=== PATIENT | female | born 1945 | race Caucasian/White ===

== ENCOUNTER 2023-08-24 07:13 | Inpatient (IN) | payer MEDICARE, OTHER, SELFPAY ==
[2023-08-24] VITALS (11 sets, daily range): BP systolic 108–164; BP diastolic 68–95; PULSE 90–111; RESP 14–18; TEMP 36.4–37; O2SAT 93–99; BMI 25.7
--- NOTE | 2023-08-24 07:23 | XR_ITS ---
WS: [id number] Exam: XR chest 1V portable [id number] Date/Time of Exam: 08/24/2023 8:04 AM Reason For Exam: abd pain No priors. Bilateral lower lobe atelectasis. Remaining lung multani are clear. No pneumothorax. Cardiomediastinal silhouette is unremarkable. Calcification of the mitral valve annulus. Bony structures are intact. IMPRESSION: 1. Bilateral lower lobe atelectasis.
--- NOTE | 2023-08-24 07:23 | CT_ITS ---
WS: [id number] CT scan of the abdomen and pelvis with IV contrast. Additional two-dimensional coronal and sagittal r econstruction was performed. 08/24/2023 Clinical Data: abd pain Comparison: None. DLP: 734.[address] scans at [facility] use at least one of these dose optimization techniques: automated e xposure control; mA and/or kV adjustment per patient size (includes targeted exams where dose is matc hed to clinical indication); or iterative reconstruction. Findings: The lower lungs show no nodules, masses or effusions. There is massive ascites throughout the abdomen . The liver, gallbladder, spleen, adrenal glands and pancreas are normal. The kidneys show equal bilateral contrast excretion with several small cortical cysts but no masses, hydronephrosis or renal calculi. The abdominal aorta is normal in size. No appendicitis or diverticulitis is seen. The stomach, small bowel and colon show no abnormalities. The bladder is unremarkable. The uterus is normal. No inguinal hernia is seen. 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 Impression: Massive abdominal and pelvic ascites.
--- NOTE | 2023-08-24 07:24 | ECG_ITS ---
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 Measurements Intervals [place] Rate: 107 P: 49 MN: 122 QRS: -29 QRSD: 86 T: 19 QT: 328 QTc: 438 Interpretive Statements SINUS TACHYCARDIA POSSIBLE ANTERIOR MYOCARDIAL INFARCTION , PROBABLY OLD [30 ms Q WAVE IN V3/V4, OR R < 0.2 mV IN V4] ABNORMAL RHYTHM ECG No previous ECG available for comparison Electronically Signed On 08-24-2023 13:43:40 SUMMER CAMP COUNSELOR by Carlos Fields M.D. [id number]
--- NOTE | 2023-08-24 07:30 | PC.PHAR ---
pt states she takes no prescription medications-pt states only took a one time dose of imodium on sun08/22/23-no meds show up on ext med history
--- NOTE | 2023-08-24 07:32 | ED_ITS ---
HPI - Weakness 2 General: Chief complaint: Weakness Stated complaint: Weakness Time Seen by Provider: 08/24/23 07:17 Source: patient Mode of arrival: ambulatory Limitations: no limitations History of Present Illness: 78-year-old female states she has had di arrhea over the last 4 days states she has been gradually getting weaker. Was found on the floor today states she had felt weak she denies falling or any injuries. She states she had some abdominal distention along with diffuse abdominal pain she rates a 4 out of 10. Denies any headache denies any chest pain denies any fevers. Associated symptoms: Denies chest pain, chills, dysuria, fever(s), headache(s), nausea or vomiting Review of Systems 2 Const: Denies: fever(s), chills, body aches or change in appetite ENMT: Denies: throat pain or dental pain Card: Denies: chest pain Resp: Denies: dyspnea GI: Reports: abdominal pain and diarrhea; Denies: nausea or vomiting : Denies: dysuria Musc: Denies: neck pain or back pain Skin/Breast: Denies: rash Neuro: Denies: headache(s) PFSH ED 2 PFSH: Family History Mother Carotid artery disease Father No problems noted. Social History (Updated 08/24/23 @ 11:43 by connor Baldwin) Smoking and tobacco/nicotine status: never used tobacco/nicotine Second hand smoke exposure: No Alcohol intake: never Substance/Drug Use: never Lives independently: Yes Physical Exam 2 Const: COMMON NORMALS: no acute distress, patient oriented x3 and healthy appearing HENMT: COMMON NORMALS: normocephalic and atraumatic HEAD & SCALP: n ormocephalic and atraumatic Neck/C-Spine: COMMON NORMALS: full ROM and supple Chest: COMMONS NORMALS: normal inspection of the chest and normal palpation of entire chest wall Resp: COMMON NORMALS: normal respiratory effort, No retractions, No use of accessory muscles and clear to auscultation bilaterally AUSCULTATION: clear to auscultation bilaterally Cardio: COMMON NORMALS: regular rate, regular rhythm and No murmurs present (Cardio) RATE: regular rate RHYTHM: regular rhythm GI: COMMON NORMALS: Soft to palpation and no masses PALPATION: Yes Soft to palpation OTHER: Distended abdomen with mild tenderness Extremity: COMMON NORMALS: full ROM NARRATIVE EXTREMITY EXAM: 2+ edmea Neuro: COMMON NORMALS: patient oriented x3, moves all extremities and no focal motor deficits Psych: COMMON NORMALS: mental status grossly normal, Normal thought process present and cooperative THOUGHT PROCESS: Normal thought process present Skin: COMMON NORMALS: no rashes or lesions noted and no wounds GENERAL SKIN EXAM: no rashes or lesions noted Course 2 Vital Signs: Vital signs: Vital Signs Temperature 98 F 08/24/23 07:18 Pulse Rate 105 H 08/24/23 09:40 Respiratory Rate 18 08/24/23 09:40 Blood Pressure 153/86 08/24/23 09:40 Pulse Oximetry 99 08/24/23 09:40 Oxygen Delivery Me thod Room Air 08/24/23 09:40 MDM - Weakness Medical Decision Making Patient presents here with increasing weakness she also has some edema and a distended abdomen CT did show ascites she does have a UTI as well spoke to hospitalist will admit. Medical Records I reviewed the patient's medical records. Lab Data I reviewed the patient's lab results. 08/24/23 07:36 08/24/23 07:36 Laboratory Results WBC 5.75 10^3/uL (3.29-11.43) 08/24/23 07:36 RBC 4.17 10^6/uL (3.85-5.65) 08/24/23 07:36 Hgb 10.80 g/dL (11.27-16.99) L 08/24/23 07:36 Hct 34.6 % (36-47) L 08/24/23 07:36 MCV 83.0 fl (85-98) L 08/24/23 07:36 MCH 25.9 pg (27-33) L 08/24/23 07:36 MCHC 31.2 g/dL (30-55) 08/24/23 07:36 RDW 17.8 % (12.1-15.1) H 08/24/23 07:36 Plt Count 254 10^3/cmm (157-399) 08/24/23 07:36 MPV 9.1 fL (7.4-10.4) 08/24/23 07:36 Lymph % (Auto) Not Reportable 08/24/23 07:36 Ramsey % (Auto) Not Reportable 08/24/23 07:36 Lymph # (Auto) Not Reportable 08/24/23 07:36 Ramsey # (Auto) Not Reportable 08/24/23 07:36 Total Counted 100 (0-100) 08/24/23 07:36 Atypical Lymphs % 4.0 % (0-5) 08/24/23 07:36 Absolute Neutrophils 5.0 10^3/cmm (1.4-6.5) 08/24/23 07:36 Segmented Neutrophils 72 % 08/24/23 07:36 Abs Segm Neuts (Man) 4.1 10/cmm (1.6-7.1) 08/24/23 07:36 Band Neutrophils 15.0 % 08/24/23 07:36 Abs Band Neuts (Man) 0.9 10^3/cmm (0.0-1.2) 08/24/23 07:36 Absolute Lymphocytes 0.6 10^3/cmm (1.2-3.4) L 08/24/23 07:36 Lymphocytes (Manual) 7 % 08/24/23 07:36 Monocytes (Manual) 2.0 % 08/24/23 07:36 Absolute Monocytes 0.1 10^3/cmm (0.1-0.6) 08/24/23 07:36 Eosinophils (Manual) 0 % 08/24/23 07:36 Absolute Eosinophils 0.0 10^3/cmm (0.0-0.7) 08/24/23 07:36 Basophils (Manual) 0.0 % 08/24/23 07:36 Absolute Basophils 0.0 10^3/cmm (0.0-0.2) 08/24/23 07:36 Metamyelocytes 0.0 % 08/24/23 07:36 Myelocytes 0.0 % 08/24/23 07:36 Nucleated RBCs 0.0 /100WBC (0-1) 08/24/23 07:36 Platelet Estimate Normal (Normal) 08/24/23 07:36 Anisocytosis Trace 08/24/23 07:36 PT 14.70 SECONDS (12.1-14.9) 08/24/23 07:36 INR 1.11 (0.8-1.2) 08/24/23 07:36 Sodium 136 mmol/L (136-145) 08/24/23 07:36 Potassium 3.4 mmol/L (3.5-5.1) L 08/24/23 07:36 Chloride 99 mmol/L (98-107) 08/24/23 07:36 Carbon Dioxide 20 mmol/L (22-29) L 08/24/23 07:36 Anion Gap 20.4 (5-19) H 08/24/23 07:36 BUN 33 mg/dL (8-23) H 08/24/23 07:36 Creatinine 0.9 mg/dL (0.5-0.9) 08/24/23 07:36 GFR Calculation Not Reportable 08/24/23 07:36 Glucose 104 mg/dL (65-115) 08/24/23 07:36 Calculated Osmolality 290 mOsm/kg (285-295) 08/24/23 07:36 Calcium 8.5 mg/dL (8.5-10.5) 08/24/23 07:36 Total Bilirubin 0.8 mg/dL (0.15-1.2) 08/24/23 07:36 AST 15 U/L (0-32) 08/24/23 07:36 ALT 8 U/L (0-33) 08/24/23 07:36 Alkaline Phosphatase 86 U/L (35-105) 08/24/23 07:36 Ammonia 10 umol/L (11-51) L 08/24/23 10:10 Troponin T Baseline 15 ng/L (0-10) H 08/24/23 07:36 Troponin T 120 Minute 13.18 ng/L (0-10) H 08/24/23 09:43 Delta Troponin T -1.82 ABS# (0-10) L 08/24/23 09:43 NT-Pro-B Natriuret Pep 1121 pg/mL (0-450) H 08/24/23 07:36 Total Protein 5.8 g/dL (6.6-8.7) L 08/24/23 07:36 Albumin 2.6 g/dL (3.5-5.2) L 08/24/23 07:36 Globulin 3.2 g/dL (1.3-4.6) 08/24/23 07:36 Lipase 8 U/L (13-60) L 08/24/23 07:36 Urine Color Yellow (Yellow) 08/24/23 11:42 Urine Appearance Hazy (CLEAR) A 08/24/23 11:42 Urine pH 5 (5-7) 08/24/23 11:42 Ur Specific [place] 1.015 (1.005-1.030) 08/24/23 11:42 Urine Protein 1+ (Negative) H 08/24/23 11:42 Urine Glucose (UA) Norm (Normal) 08/24/23 11:42 Urine Ketones 1+ (Negative) H 08/24/23 11:42 Urine Blood Neg (Negative) 08/24/23 11:42 Urine Nitrate Positive (Negative) H 08/24/23 11:42 Urine Bilirubin 1+ (Negative) H 08/24/23 11:42 Urine Urobilinogen 1 mg/dL (Negative) H 08/24/23 11:42 Ur Leukocyte Esterase Trace (Negative) H 08/24/23 11:42 Urine RBC 0-4 /hpf (0-2) H 08/24/23 11:42 Urine WBC 25-40 /hpf (0-5) H 08/24/23 11:42 Ur Squamous Epith Cells 0-4 /hpf (0-5) H 08/24/23 11:42 Amorphous Sediment Not Reportable 08/24/23 11:42 Urine Bacteria 2+ /hpf (NONE) H 08/24/23 11:42 Urine Mucus 2+ /hpf 08/24/23 11:42 Ur Oval Fat Bodies Y /hpf 08/24/23 11:42 No radiology studies performed this visit EKG Data EKG 1: I personally reviewed and interpreted this EKG as follows: EKG interpretation date: 08/24/23 EKG interpretation time: 07:31 Interpretation: nsr hr [address] or t wave abnormalities qrs 141 qtc 467 Discharge Plan Discharge Patient Disposition: Admitted As Inpatient Clinical Impression: Ascites, Weakness, Acute cystitis Condition: Stable Prescriptions: No Action Imodium 2 mg Capsule 4 mg PO .ONE TIME DOSE Coding Level of Care Code ED Fine Jewelry Sales Associate for Chg Jabier
[2023-08-24 07:44] LABS: Hematocrit 34.6 % (36-47); Mean Corpuscular HGB Conc 31.2 g/dL (30-55); Mean Corpuscular Hemoglobin 25.9 pg (27-33); Mean Platelet Volume 9.1 fL (7.4-10.4); Platelet Count 254 10^3/cmm (157-399); Red Blood Count 4.17 10^6/uL (3.85-5.65); Red Cell Distribution Width 17.8 % (12.1-15.1); White Blood Count 5.75 10^3/uL (3.29-11.43)
[2023-08-24] MEDS: sodium chloride 0.9% 1,000 ML 999 ML IV (07:53)
[2023-08-24 08:01] LABS: Alanine Aminotransferase 8 U/L (0-33); Albumin Level 2.6 g/dL (3.5-5.2); Alkaline Phosphatase 86 U/L (35-105); Anion Gap 20.4 (5-19); Aspartate Amino Transferase 15 U/L (0-32); Blood Urea Nitrogen 33 mg/dL (8-23); Calcium 8.5 mg/dL (8.5-10.5); Carbon Dioxide 20 mmol/L (22-29); Chloride 99 mmol/L (98-107); Globulin 3.2 g/dL (1.3-4.6); Glucose 104 mg/dL (65-115); Lipase 8 U/L (13-60); Osmolality Calculated 290 mOsm/kg (285-295); Potassium 3.4 mmol/L (3.5-5.1); Sodium 136 mmol/L (136-145); Total Bilirubin 0.8 mg/dL (0.15-1.2); Total Protein 5.8 g/dL (6.6-8.7)
[2023-08-24 08:32] LABS: Absolute Segmented Neutrophil 4.1 10/cmm (1.6-7.1); Band Neutrophils Absolute 0.9 10^3/cmm (0.0-1.2); Lymphocytes 7 %; Monocytes Absolute 0.1 10^3/cmm (0.1-0.6); Segmented Neutrophils 72 %; Slide Review Slide Review Perform; Total Cells Counted 100 (0-100)
[2023-08-24 08:33] LABS: Eosinophils 0 %; Lymphocytes Absolute 0.6 10^3/cmm (1.2-3.4); Platelet Estimate Normal (Normal)
[2023-08-24 08:34] LABS: Anisocytosis Trace
[2023-08-24] MEDS: iohexol 350 mg/mL 500 mL Btl (per mL) IV (08:47)
[2023-08-24 09:44] LABS: Troponin(5th) Baseline 15 ng/L (0-10)
[2023-08-24 09:56] LABS: NT Pro B Type Natriuretic Pept 1121 pg/mL (0-450)
--- NOTE | 2023-08-24 10:10 | CT_ITS ---
WS: [id number] CT scan of the head, 08/24/2023 Clinical Data: fall Comparison: None. DLP: 1131.[address] scans at [facility] use at least one of these dose optimization techniques: automated e xposure control; mA and/or kV adjustment per patient size (includes targeted exams where dose is matc hed to clinical indication); or iterative reconstruction. Findings: The ventricular system is normal without shift. The ventricular system is dilated as are the sulci. N o recent infarct or hemorrhage is seen. There are no abnormal intracerebral masses. The cerebellum an d brainstem are not remarkable. Bony windows of the skull and skull base show no fractures or erosions. The mastoid air cells, intelligence intern al auditory canals, sella turcica, intraorbital contents, and paranasal sinuses are unremarkable. Impression: 1. Negative for acute intracranial abnormality. 2. Mild cerebral atrophy.
[2023-08-24 10:16] LABS: Troponin 5 2HR 13.18 ng/L (0-10)
[2023-08-24 10:27] LABS: Troponin 5 2HR Delta -1.82 ABS# (0-10)
[2023-08-24 10:35] LABS: Ammonia 10 umol/L (11-51)
--- NOTE | 2023-08-24 11:16 | ECG_ITS ---
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 Measurements Intervals [place] Rate: 103 P: 64 TN: 140 QRS: -28 QRSD: 66 T: 9 QT: 318 QTc: 418 Interpretive Statements SINUS TACHYCARDIA INFERIOR MYOCARDIAL INFARCTION , PROBABLY OLD [40+ ms Q WAVE AND/OR ST/T ABNORMALITY IN II/aVF] ANTEROSEPTAL MYOCARDIAL INFARCTION , OF INDETERMINATE AGE [40+ ms Q WAVE IN V1-V4] Compared to ECG 08/24/2023 07:38:09 No significant changes Electronically Signed On 08-24-2023 13:44:45 HOTEL SERVICE SUPERVISOR by Carlos Fields M.D. [email or web address]
[2023-08-24 11:28] LABS: INR 1.11 (0.8-1.2)
--- NOTE | 2023-08-24 11:36 | P.HP_ITS ---
Documented by User: connor Baldwin 08/24/23 12:14 Providers/Chief Complaint 2 Admitting Physician: Sridhar Pollard MD Chief Complaint: Weakness History of Present Illness Patient is a 78-year-old female with no past medical history who presents to the emergency room with increased weakness. Patient reports that she started feeling weak approximately 1 to 2 weeks ago. Reports that she did have some diarrhea at that time but denied any bloody diarrhea. States that she was unable to get up and ambulate as well and has noticed the weakness progressively getting worse. She does report abdominal pain and abdominal distention that started approximately 1 week ago. States she also noticed swelling in her legs that started 2 weeks ago. She also reports body aches and joint pain throughout. She denies any nausea, vomiting, chest discomfort. Does report abdominal pain on palpation, 7/10 on pain scale, and unable to urinate since yesterday. Also reports some slight shortness of breath and is unable to tolerate lying flat for too long, also states she snores more often while breathing. While in the emergency room, laboratory and radiology imaging were performed. Patient received 1 L NS bolus and Zofran 4 mg for nausea. Review of Systems 2 Narrative: Comprehensive 10 point ROS is negative except as noted in the HPI above. ENMT: Reports: dry mouth Resp: Reports: dyspnea GI: Reports: abdominal pain and diarrhea; Denies: nausea, vomiting or hematemesis : Reports: difficulty voiding; Denies: flank pain Medications/Allergies Home Medications Medication Instructions Recorded Confirmed Last Taken Type loperamide 2 mg capsule 4 mg PO .ONE TIME DOSE 08/24/23 08/24/23 08/22/23 History Allergies Allergy/AdvReac Type Severity Reaction Status Date / Time No Known Allergies Allergy Verified 08/24/23 07:29 PFSH Acute 2 PFSH: Family History Mother Carotid artery disease Father No problems noted. Social History Smoking and tobacco/nicotine status: never used tobacco/nicotine Second hand smoke exposure: No Alcohol intake: never Substance/Drug Use: never Lives independently: Yes Vitals/I&O/Wt Last Vital Signs Temp 98 F 08/24/23 07:18 Pulse 105 H 08/24/23 09:40 Resp 18 08/24/23 09:40 BP 153/86 08/24/23 09:40 Pulse Ox 99 08/24/23 09:40 O2 Del Method Room Air 08/24/23 09:40 Weight last 48 hrs Weight 70.307 kg Physical Exam 2 Narrative: General: Alert, slight short of breath, able to answer questions appropriately, pale. HEENT: Dry mucous membranes, oral mucosa normal, oropharynx normal Neck: Supple Lymph: No lymphadenopathy noted. Chest normal to inspection Respiratory: Slight shortness of breath with nasal flaring. Clear lung sounds throughout per auscultation. Cardio: No JVD, RRR, S1-S2, radial and dorsalis pedis bilateral pulses 2+. GI: Active bowel sounds throughout, abdomen tender on palpation. Bilateral abdominal wall edema. Active bowel sounds throughout. : Deferred Skin: 3+ pitting edema to bilateral lower extremity., Ascites noted to bilateral abdomen. Neuro: Oriented and alert x 4. Data 08/24/23 07:36 08/24/23 07:36 Other Labs: Hemoglobin 10.8, hematocrit 34.6, MCV 83 Potassium 3.4, 20, BUN 33, troponin baseline 15, 2-hour delta troponin 13.18, BNP 1121 serum protein 5.8, albumin 2.6 CT Abd/Pel: My impression: Massive abdominal and pelvic ascites. Radiologist's impression: Massive ascites throughout the abdomen. Kidneys show equal bilateral contrast excretion with several small cyst but no mass, hydronephrosis or renal calculi. CXR: My impression: Bilateral lower lobe atelectasis. No pneumothorax noted. Radiologist's impression: Bilateral lower lobe atelectasis. CT Head: Radiologist's impression: Negative for acute intracranial abnormalities., Mild cerebral atrophy. EKG 1: My Interpretation: Sinus tachycardia, no axis deviation, no ST changes. EKG computer-generated impression: Sinus tachycardia, rate 107 A&P Assessment and plan (1) Ascites: Patient has significant abdominal distention as well as noticeable abdominal ascites. It is unclear at this time if this is related to heart failure versus genitourinary cancer. Will obtain cancer markers via laboratory. CT abdomen pelvis confirms massive amount of ascites. Radiology to perform paracentesis at bedside. Paracentesis fluid will be sent off for cytology and LIGHTS criteria for further evaluation. Trend CBC and CMP in AM. Low Sodium Diet Echocardiogram to r/o HF. (2) Anemia: MCV noted to be low. TIBC, B12. Folate. Ferritin labs now. Check fecal occult stool. (3) Weakness: Patient reports significant weakness over the past week or so. PT/OT eval and treat when appropriate. (4) Hypoalbuminemia: Most likely due to #1. Will obtain urinalysis for further evaluation of proteinuria. (5) Hypokalemia: 3.4 this a.m. 40 mEq Potassium PO now. Monitor CMP in AM. (6) UTI (urinary tract infection): Plan Plan as stated above. Awaiting laboratory results for further evaluation. Radiology to perform bedside paracentesis for further evaluation of fluid. CODE STATUS: Full code. In the event patient is unable to make decisions for herself, Rowena daughter, will make decisions for her. DVT prophylaxis:Heparin and SCDs. Coding Level of Care Code 76974 Diagnoses Ascites R18.8 Anemia D64.9 Weakness R53.1 Hypoalbuminemia E88.09 Hypokalemia E87.6 UTI (urinary tract infection) N39.0 Time Spent (min) 59 Documented by User: Sridhar Pollard MD 08/24/23 12:44 Providers/Chief Complaint 2 Chief Complaint: Weakness History of Present Illness Patient is a 78-year-old female with no past medical history who presents to the emergency room with increased weakness. Patient reports that she started feeling weak approximately 1 to 2 weeks ago. Reports that she did have some diarrhea at that time but denied any bloody diarrhea. States that she was unable to get up and ambulate as well and has noticed the weakness progressively getting worse. She does report abdominal pain and abdominal distention that started approximately 1 week ago. States she also noticed swelling in her legs that started 2 weeks ago. She also reports body aches and joint pain throughout. She denies any nausea, vomiting, chest discomfort. Does report abdominal pain on palpation, 7/10 on pain scale, and unable to urinate since yesterday. Also reports some slight shortness of breath and is unable to tolerate lying flat for too long, also states she snores more often while breathing. She has not eaten or drank well for the last week, claiming early satiety/just not wanting to eat. While in the emergency room, laboratory and radiology imaging were performed. Patient received 1 L NS bolus and Zofran 4 mg for nausea. Medications/Allergies Home Medications Medication Instructions Recorded Confirmed Last Taken Type loperamide 2 mg capsule 4 mg PO .ONE TIME DOSE 08/24/23 08/24/23 08/22/23 History Allergies Allergy/AdvReac Type Severity Reaction Status Date / Time No Known Allergies Allergy Verified 08/24/23 07:29 PFSH Acute 2 PFSH: Family History Mother Carotid artery disease Father No problems noted. Social History Smoking and tobacco/nicotine status: never used tobacco/nicotine Second hand smoke exposure: No Alcohol intake: never Substance/Drug Use: never Lives independently: Yes Other PFSH information: Supplemental PFSH Information: She specifically denied any medical problems, but does not have a primary care provider. She has not had any screening exams. She denies any hpjb-hhc-xhmieyd medications and has never had any surgeries. Physical Exam 2 Narrative: General: Alert, slight short of breath, able to answer questions appropriately, pale. HEENT: Dry mucous membranes, oral mucosa normal, oropharynx normal Neck: Supple Lymph: No lymphadenopathy noted. Chest normal to inspection Respiratory: Slight shortness of breath with nasal flaring. Clear lung sounds throughout per auscultation. Cardio: No JVD, RRR, S1-S2, radial and dorsalis pedis bilateral pulses 2+. GI: Active bowel sounds throughout, abdomen tender on palpation. Bilateral abdominal wall edema. Active bowel sounds throughout. Fluid wave is noted consistent with ascites : Deferred Skin: 3+ pitting edema to bilateral lower extremity., Ascites noted to bilateral abdomen. Neuro: Oriented and alert x 4. Data 08/24/23 07:36 08/24/23 07:36 EKG 1: EKG computer-generated impression: Sinus tachycardia, rate 107. Left axis deviation. Q waves V1 V2. Poor R wave progression. Biphasic P wave V1. As well as aVR. Cannot rule out previous myocardial infarction, anterior A&P Assessment and plan (1) Ascites: Patient has significant abdominal distention as well as noticeable abdominal ascites. Differential includes congestive heart failure, malignancy. Liver disease is less likely. Nephrotic syndrome less likely with only trace to 1+ proteinuria and no evidence of glomerulonephropathy. Doubt SBP. Ultimately this will become more clear after paracentesis. Will obtain cancer markers via laboratory. CT abdomen pelvis confirms massive amount of ascites. Radiology to perform paracentesis at bedside. Paracentesis fluid will be sent off for cytology and LIGHTS criteria for further evaluation. Cultures will also be obtained Trend CBC and CMP in AM. Low Sodium Diet Echocardiogram to r/o HF. As it is likely significant fluid will be removed with paracentesis, no IV diuretic was ordered today. Renal function will be reassessed tomorrow. (2) Anemia: (3) Weakness: Patient reports significant weakness over the past week or so. PT/OT eval and treat when appropriate. This could possibly be initiated tomorrow after procedures for investigation of ascites occurred today (4) Hypoalbuminemia: (5) Hypokalemia: 3.4 this a.m. 40 mEq Potassium PO now. Monitor CMP in AM. Magnesium in a.m. (6) UTI (urinary tract infection): Urine culture Initiate Rocephin, following paracentesis. Attestations 2 Medical Necessity Statement*: Will need greater than 2 midnight stay for evaluation and treatment of massive ascites, weakness, electrolyte abnormality, anemia Diagnoses Ascites R18.8 Anemia D64.9 Weakness R53.1 Hypoalbuminemia E88.09 Hypokalemia E87.6 UTI (urinary tract infection) N39.0 Time Spent (min) 59
--- NOTE | 2023-08-24 12:07 | US_ITS ---
WS: [id number] ULTRASOUND-GUIDED PARACENTESIS CLINICAL INFORMATION: ascites, diagnostic and therapeutic COMPARISON: None. Procedure Informed consent: The risks, benefits, and alternatives of the procedure were discussed with the mckenna ent. Verbal and written consent was obtained. Timeout: A timeout was performed to confirm the correct patient, procedure, and site. Preparation: A suitable skin site was identified. The patient was prepped and draped in usual sterile fashion. Lidocaine 1% was used for local anesthesia. Catheter: 4 Uzbek One-step Yueh catheter. Side: LEFT lower quadrant. Fluid Volume: 5500 ml Color: Clear yellow DISPOSITION: Discarded safely. Complications: None. Patient disposition: Discharged from the department in stable condition. IMPRESSION: Uncomplicated ultrasound-guided paracentesis. Removal of 5500 cc
[2023-08-24 12:26] LABS: Add Urine Microscopic? YES; Bacteria Urine 2+ /hpf; Bilirubin Urine 1+ (Negative); Blood Urine Neg (Negative); Glucose Urine UA Norm (Normal); Ketones Urine 1+ (Negative); Leukocyte Esterase Urine Trace (Negative); Mucus Urine 2+ /hpf; Nitrate Urine Positive (Negative); Oval Fat Bodies Urine Y /hpf; Protein Urine 1+ (Negative); RBC Urine 0-4 /hpf (0-2); Specific Gravity, Urine 1.015 (1.005-1.030); Squamous Epithelial Cell Urine 0-4 /hpf (0-5); Urine Appearance Hazy (CLEAR); Urine Color Yellow (Yellow); Urobilinogen Urine 1 mg/dL (Negative); WBC Urine 25-40 /hpf (0-5); pH Urine 5 (5-7)
[2023-08-24 13:00] LABS: Folate Level 2.6 ng/mL (4.8-37.3)
[2023-08-24 13:01] LABS: Cancer Antigen 19 9 8.49 U/mL (0-35); Ferritin 469 ng/mL (15-150); Iron 13 ug/dL (37-145); Percent Saturation 12.7 % (20-50); Thyroid Stimulating Hormone 1.34 uIU/mL (0.27-4.20); Total Iron Binding Capacity 102 mcg/dl; Unsaturated Iron Binding 89 ug/dL (112-347); Vitamin B12 1057 pg/mL (232-1245)
--- NOTE | 2023-08-24 13:21 | USCV_ITS ---
Rowena Thompson Age: 78 Gender: F : 1945 Exam Date: 08/24/2023 18:15 Ordering Phys: Sridhar Pollard MD Technologist: Hayden Vick Exam Location: [facility] [place] Indication: elevated bnp BP: 142 / 80 HR: 98 Rhythm: Sinus Technical Quality: Adequate MEASUREMENTS (Male / Female) Normal Values 2D ECHO LVOT Diameter 2.0 cm LV Ejection Fraction MOD 2C 64.2 % LV Ejection Fraction 2C AL 66.8 % LA Diameter 3.1 cm LA Width 3.5 cm LA Height 3.1 cm RA Width 2.6 cm RA Height 4.2 cm Aorta at Sinotubular Diameter 2.3 cm M-MODE Aortic Annulus Diameter 2.9 cm LA Ao Ratio MM 1.1 MV E Point Septal Separation 0.6 cm DOPPLER AV Peak Velocity 178.7 cm/s LVOT Peak Velocity 151.0 cm/s AV Area Cont Eq vti 2.3 cm squared AV Area Cont Eq pk 2.7 cm squared MV Peak Velocity 179.0 cm/s MV Area PHT 6.5 cm squared Mitral E to A Ratio 0.5 MV E' Velocity 37.0 cm/s Mitral E to MV E' Ratio 9.7 Mitral E to LV E' Lateral Ratio 9.8 Mitral E to LV E' Septal Ratio 9.7 Right Atrial Pressure 8.0 mmHg PV Peak Velocity 115.7 cm/s RV Acceleration Time 0.1 s RV Ejection Time 0.2 s RV AcT/ET 0.4 FINDINGS Left Ventricle Normal left ventricular size and systolic function, EF 68 %. No regional wall motion abnormalities. Grade I/IV diastolic dysfunction (abnormal relaxation filling pattern), normal to mildly elevated filling pressures. Right Ventricle Normal right ventricular size and systolic function. Right Atrium Normal right atrial size. Left Atrium Normal left atrial size. Mitral Valve Moderate mitral annular calcification. Aortic Valve Trace aortic valve regurgitation. Tricuspid Valve No gross abnormalities noted Pulmonic Valve Trace pulmonary valve regurgitation. Pericardium No pericardial effusion. Aorta Dense plaques in the ascending aorta IVC Inferior vena cava not visualized. CONCLUSIONS Normal left ventricular size and systolic function, EF 68 %. No regional wall motion abnormalities. Grade I/IV diastolic dysfunction (abnormal relaxation filling pattern), normal to mildly elevated filling pressures. Moderate mitral annular calcification. Trace aortic valve regurgitation. Trace pulmonary valve regurgitation. There is no pericardial effusion. There are no intracardiac masses. No similar previous studies are available for comparison Dr Jai Grimaldo MD FAC (Electronically Signed) Final Date: 25 August 2023 09:04 S
[2023-08-24 13:25] LABS: Carcinoembryonic Antigen 0.8 ng/mL (0.0-4.7); Tumor Marker Alpha Fetoprotein 1.8 ng/mL (0-8.3)
[2023-08-24 15:05] LABS: Body Fluid Polynuclear #Cells 8.475; Body Fluid WBC 8974 /uL; Monocytes # Body Fluid 0.499
[2023-08-24 15:11] LABS: Apprearance, Body Fluid TURBID; Color, Body Fluid YELLOW
[2023-08-24 15:15] LABS: Cyto Order Verification Order Verified; PATH Referral YES
--- NOTE | 2023-08-24 15:16 | ECG_ITS ---
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 Measurements Intervals [place] Rate: 97 P: 78 LA: 122 QRS: -32 QRSD: 89 T: 62 QT: 345 QTc: 439 Interpretive Statements SINUS RHYTHM MARKED LEFT AXIS DEVIATION [QRS AXIS < -30] PATTERN CONSISTENT WITH PULMONARY DISEASE NONSPECIFIC T-WAVE ABNORMALITY Compared to ECG 08/24/2023 11:44:42 Left-axis deviation now present T-wave abnormality now present Sinus tachycardia no longer present Myocardial infarct finding no longer present Electronically Signed On 08-25-2023 18:47:10 BAND SHOVER by Jai Grimaldo M.D. [email or web address]
[2023-08-24 15:20] LABS: Troponin 5 6HR 13.25 ng/L (0-10); Troponin 5 6HR Delta -1.75 ng/L (0-12)
[2023-08-24 15:42] LABS: Albumin Body Fluid 1.7 g/dL; Amylase Body Fluid 12 U/L; Cholesterol Body Fluid 37 mg/dL (0-200); Fluid Alkaline Phos. 132 IU/L; LDH Body Fluid 450 U/L; Total Protein Body Fluid 2.7 g/dL; Triglycerides Body Fluid 29 mg/dL (0-150); Uric Acid Body Fluid 6 mg/dL
[2023-08-24] MEDS: cefTRIAXone 2,000 MG in sodium chloride 0.9% (plus) 50 ML 100 MG IV (17:37)
[2023-08-24] MEDS: potassium chloride ER 20 mEq Tablet 40 MEQ PO (17:40)
[2023-08-24] MEDS: heparin 5,000 unit/mL INJ 1 mL 5000 UNIT SUBCUT (21:05)
[2023-08-24] MEDS: zolpidem 5 mg Tablet PO (21:05)
[2023-08-25] VITALS (10 sets, daily range): BP systolic 109–147; BP diastolic 57–73; PULSE 86–102; RESP 16–20; TEMP 36.4–36.9; O2SAT 93–96
[2023-08-25 06:42] LABS: Basophils % 0.8 %; Hematocrit 30.8 % (36-47); Lymphocytes # 0.8 10^3/uL (0.8-4.8); Lymphocytes % 20.4 %; Mean Corpuscular HGB Conc 31.2 g/dL (30-55); Mean Corpuscular Hemoglobin 25.3 pg (27-33); Mean Corpuscular Volume 81.3 fl (85-98); Mean Platelet Volume 8.7 fL (7.4-10.4); Monocytes # 0.2 10^3/uL (0.2-0.9); Monocytes % 6.1 %; Neutrophils # 2.79 10^3/uL (1.8-7.7); Neutrophils % 71.2 %; Nucleated Red Blood Cells % 0 %; Platelet Count 252 10^3/cmm (157-399); Red Blood Count 3.79 10^6/uL (3.85-5.65); Red Cell Distribution Width 18.3 % (12.1-15.1); White Blood Count 3.92 10^3/uL (3.29-11.43)
[2023-08-25 07:07] LABS: Alanine Aminotransferase 7 U/L (0-33); Albumin Level 2.2 g/dL (3.5-5.2); Alkaline Phosphatase 71 U/L (35-105); Aspartate Amino Transferase 12 U/L (0-32); Blood Urea Nitrogen 36 mg/dL (8-23); Calcium 8.2 mg/dL (8.5-10.5); Carbon Dioxide 20 mmol/L (22-29); Chloride 104 mmol/L (98-107); Globulin 2.9 g/dL (1.3-4.6); Glucose 102 mg/dL (65-115); Magnesium 2.6 mg/dL (1.7-2.3); Osmolality Calculated 297 mOsm/kg (285-295); Sodium 139 mmol/L (136-145); Total Bilirubin 0.2 mg/dL (0.15-1.2); Total Protein 5.1 g/dL (6.6-8.7)
[2023-08-25 07:29] LABS: Slide Review Slide Review Perform
[2023-08-25] MEDS: folic acid 1 mg Tablet PO (09:17)
[2023-08-25] MEDS: pantoprazole DR 40 mg Tablet PO (09:17)
[2023-08-25] MEDS: heparin 5,000 unit/mL INJ 1 mL 5000 UNIT SUBCUT ×2 (09:17→22:59)
[2023-08-25] MEDS: cefTRIAXone 2,000 MG in sodium chloride 0.9% (plus) 50 ML 100 MG IV (16:01)
--- NOTE | 2023-08-25 20:38 | P.PN_ITS ---
Subjective 2 Subjective: Kindra Munroe: [phone]. By the patient's daughter, patient has been very healthy until a week ago when her legs started swelling. The patient does not go to see a doctor. SHe started having severe diarrhea 3-4days prior to presentation, but did not tell anyone. Patient's family members called her yesterday morning, and when she did not answer her phone, so the patient's daughter went to her house and found the patient on the floor. The patient states that she slid from the chair to the floor. The patient had been scooting around the house b/c she was too weak to walk. The patient states that one day, she went to the bathroom as much as 18 to 20times. Per daughter, patient has a lesion in her back that the daughter noticed since 07/2022. The lesion kept growing and it drained this 03/2023. The patient's daughter stated that the fluid was foul smelling and malodorous. The patient states that it drained sometime in 2021. The patient states that she has no appetite. She endorses dizziness, light headedness . She complains of b/l lower abdominal pain, myalgias, R. shoulder pain, a slight running. She denies SOB, f/c, CP, palpitations, coughing, wheezing, nasal congestion. Vitals/I&O/Wt Last Vital Signs Temp 98.4 F 08/25/23 19:20 Pulse 102 H 08/25/23 19:20 Resp 16 08/25/23 19:20 BP 135/73 08/25/23 19:20 Pulse Ox 94 08/25/23 19:20 O2 Del Method Room Air 08/25/23 19:20 08/25/23 08/25/23 08/25/23 06:59 14:59 22:59 Intake Total 780 / 780 290 / 1070 Output Total 200 / 6600 Balance -200 / -5070 780 / 780 290 / 1070 Weight last 48 hrs Weight 71.753 kg Weight 73.028 kg Weight 70.307 kg Physical Exam 2 Const: GENERAL APPEARANCE: cooperative; not comfortable ORIENTATION/CONSCIOUSNESS: Yes awake, Yes oriented to person, Yes oriented to place and Yes oriented to time HENMT: COMMON NORMALS: normocephalic, atraumatic and external ears normal H EAD & SCALP: normocephalic and atraumatic EXTERNAL EAR: Yes external ears normal MOUTH: Normal oral and palatal mucosa present THROAT: posterior oropharynx normal Eye: COMMON NORMALS: Equal, round and reactive pupils present and conjunctivae normal CONJUNCTIVA: Yes conjunctivae normal PUPIL: Yes Equal, round and reactive pupils present EOM: No EOM abnormal Neck/C-Spine: COMMON NORMALS: Thyroid normal GENERAL: Yes normal visual inspection and Yes trachea midline THYROID: Thyroid normal CAROTIDS: No bruit Lymph: LYMPHATIC: lymphadenopathy OTHER: No cervical supraclavicular, epitrochlear, or bilateral inguinal lymphadenopathy noted Resp: OTHER: Crackles in the bilateral mid to lower lung multani with decreased breath sounds in the bilateral lower lung multani Cardio: OTHER: Regular rate and rhythm with no murmurs, rubs, gallops, or clicks. No carotid bruits, 2+ radial and 2+ dorsalis pedis pulses appreciated GI: OTHER: Bowel sounds positive, but with a distended abdomen, and tenderness to palpation in the bilateral lower quadrants with no rigidity, guarding, or rebound tenderness. No organomegaly appreciated. Extremity: NARRATIVE EXTREMITY EXAM: No clubbing or cyanosis, but bilateral pedal edema GENERAL: Yes cyanosis Neuro: SENSORIUM/ORIENTATION: Yes oriented to person, Yes oriented to place and Yes oriented to time CRANIAL NERVES: Yes CN normal except as noted S PEECH: speech normal SENSORY EXAM: No sensory level loss detected MOTOR EXAM: 5/5 motor strength present throughout and Normal motor muscle tone present throughout Psych: COMMON NORMALS: Normal thought process present and speech normal A PPEARANCE: Yes grossly normal ATTITUDE: Yes calm and Yes engaged SPEECH: Y es normal speech MOOD & AFFECT: Yes sad THOUGHT PROCESS: Normal thought process present THOUGHT CONTENT: Yes Normal thought content present A TTENTION/CONCENTRATION: Yes attention grossly intact MEMORY/COGNITION: Yes memory grossly intact Skin: COMMON NORMALS: no rashes or lesions noted GENERAL SKIN EXAM: no rashes or lesions noted Urinary Catheter Management: Newman: Cath Placed During This Visit: yes Reason for Continuing Indwelling Catheter: Accurate Measurement of Urinary Output in Critically Ill Patients Urinary Catheter Date of Insertion: 08/24/23 Urinary Catheter Time of Insertion: 12:02 Data 08/25/23 05:58 08/25/23 05:58 Micro: Microbiology 08/24/23 14:14 Gram Stain - Final Peritoneal Fluid Anaerobic Culture - Preliminary Body Fluid Culture - Preliminary 08/24/23 11:42 Urine Culture - Preliminary Urine Catheterized Gram Negative Rods A&P Assessment and plan (1) Ascites: Qualifiers: Ascites type: other type Qualified Code(s): R18.8 - Other ascites (2) Hypokalemia: (3) Acute cystitis: Qualifiers: Hematuria presence: without hematuria Qualified Code(s): N30.00 - Acute cystitis without hematuria (4) Anemia: (5) Hypoalbuminemia: (6) Weakness: (7) Spontaneous bacterial peritonitis: Plan Ms. Thompson is a 78o woman who has not seen a Physician in >30yrs who presented to the ED on 08/24/2023 with 1 week of bilateral pedal edema, abdominal pain and distention, 3 to 4 days of severe diarrhea, and progressive generalized weakness resulting in a known fall without head trauma. In the ED, her UA was concerning for UTI. CT head was done that was negative for any acute intracranial abnormality. Her CXR showed bilateral lower lobe atelectasis. CT abdomen and pelvis was done that showed massive abdominal and pelvic ascites. On admission, an ultrasound-guided paracentesis was done that showed 5.5 L of clear yellow ascites. # Ascites: #Differential includes congestive heart failure, liver disease, Nephrotic/nephritic syndrome & malignancy. -Although CHF was felt to be more likely, her ECHO suggests against CHF. Her UA suggest against a renal origin. Her cancer markers are significant for CA125. -Although liver disease was thought to be less likely on admission, it is difficult to say given the amount of ascites that she had on CT scan. Furthermore further discussion with the patient indicates that although she had not seen a PCP in many years, she generally try to stay in good health. She rarely consumes alcohol and if she does it might be 1 or 2 beers per year, and she does not take any herbs or new supplements. Furthermore her ammonia level was 10. -The patient's SAAG is 0.5, which is <1.1 and not indicative of portal hypertension. SBP can cause a SAAG less then 1.1 in addition on TB, malignancy, hypoalbuminemia due to some protein losing enteropathy, and ovarian malignancy. - Continue the 2g Ceftriaxone daily. - I have continued to hold ordering a diuretic for now. #Diarrhea: Stool studies ordered and pending # Anemia: #Weakness: Patient reports significant weakness over the past week or so. PT/OT eval and treat when appropriate. This could possibly be initiated tomorrow after procedures for investigation of ascites occurred today # Hypoalbuminemia: #Hypokalemia: Monitor & replace prn # UTI (urinary tract infection): Urine culture Initiate Rocephin, following paracentesis. Attestations 2 Medical Necessity Statement*: Patient remains hospitalized for her recurrent ascites and spontaneous bacterial peritonitis. Coding Level of Care Code Acute Code for [facility] Fwd Diagnoses Ascites R18.8 Ascites type: other type Hypokalemia E87.6 Acute cystitis without hematuria N30.00 Hematuria presence: without hematuria Anemia D64.9 Hypoalbuminemia E88.09 Weakness R53.1 Spontaneous bacterial peritonitis K65.2
[2023-08-25] MEDS: HYDROmorphone 1 mg/mL INJ 1 mL IVP (21:55)
[2023-08-26] VITALS (9 sets, daily range): BP systolic 108–128; BP diastolic 56–73; PULSE 85–102; RESP 16–17; TEMP 36.4–36.8; O2SAT 93–95
[2023-08-26] MEDS: pantoprazole DR 40 mg Tablet PO (09:25)
[2023-08-26] MEDS: folic acid 1 mg Tablet PO (09:25)
[2023-08-26] MEDS: heparin 5,000 unit/mL INJ 1 mL 5000 UNIT SUBCUT ×2 (09:25→23:00)
--- NOTE | 2023-08-26 11:59 | PC.NURSE ---
patient sat on side of bed with this nurse. Patient required max assistance. patient tolerated sitting for approx. two minutes, and requested to lay down.
[2023-08-26] MEDS: HYDROmorphone 1 mg/mL INJ 1 mL IVP ×2 (15:31→23:28)
--- NOTE | 2023-08-26 15:51 | USR_ITS ---
PROCEDURE INFORMATION: Exam: US Pelvis, Transvaginal Exam date and time: 08/26/2023 4:42 PM Age: 78 years old Clinical indication: Pelvic pain; Additional info: Concern for ovarian malignancy TECHNIQUE: Imaging protocol: Real-time transvaginal pelvic ultrasound with image documentation. Transvaginal imaging was used for better evaluation of the endometrium, adnexa, and/or cervix. COMPARISON: CT abdomen pelvis w con* [id number] 08/24/2023 8:12 AM FINDINGS: Uterus: Not clearly seen. Right ovary/adnexa: Not identified. Left ovary/adnexa: Not identified. Intraperitoneal space: Ascites. Large 9.1 x 5.8 x 13.8 centimeter mobile structure. US/US transvaginal [id number] IMPRESSION: Limited evaluation of the uterus and ovaries due to overlying bowel gas, and ascites. Large 9.1 x 5.8 x 13.8 centimeter mobile structure.
[2023-08-26] MEDS: cefTRIAXone 2,000 MG in sodium chloride 0.9% (plus) 50 ML 100 MG IV (17:23)
[2023-08-26 20:48] LABS: Basophils % 0.2 %; Eosinophils % 0.5 %; Hematocrit 29.2 % (36-47); Lymphocytes # 0.8 10^3/uL (0.8-4.8); Mean Corpuscular HGB Conc 31.8 g/dL (30-55); Mean Corpuscular Hemoglobin 25.6 pg (27-33); Mean Corpuscular Volume 80.4 fl (85-98); Mean Platelet Volume 8.5 fL (7.4-10.4); Monocytes # 0.4 10^3/uL (0.2-0.9); Monocytes % 7.4 %; Neutrophils # 4.23 10^3/uL (1.8-7.7); Neutrophils % 76.2 %; Nucleated Red Blood Cells % 0 %; Platelet Count 215 10^3/cmm (157-399); Red Blood Count 3.63 10^6/uL (3.85-5.65); White Blood Count 5.55 10^3/uL (3.29-11.43)
[2023-08-26 20:59] LABS: INR 1.03 (0.8-1.2)
[2023-08-26 21:00] LABS: Partial Thromboplastin Time 27.1 SECONDS (23.9-36.7)
[2023-08-26 21:05] LABS: Alanine Aminotransferase 6 U/L (0-33); Alkaline Phosphatase 72 U/L (35-105); Anion Gap 14.2 (5-19); Aspartate Amino Transferase 11 U/L (0-32); Blood Urea Nitrogen 32 mg/dL (8-23); Calcium 7.8 mg/dL (8.5-10.5); Carbon Dioxide 22 mmol/L (22-29); Chloride 104 mmol/L (98-107); Globulin 3.3 g/dL (1.3-4.6); Glucose 122 mg/dL (65-115); Magnesium 2.6 mg/dL (1.7-2.3); Osmolality Calculated 290 mOsm/kg (285-295); Phosphorus 3.3 mg/dL (2.5-4.5); Potassium 4.2 mmol/L (3.5-5.1); Sodium 136 mmol/L (136-145); Total Bilirubin 0.2 mg/dL (0.15-1.2); Total Protein 5.3 g/dL (6.6-8.7)
--- NOTE | 2023-08-26 21:37 | USR_ITS ---
PROCEDURE INFORMATION: Exam: US Abdomen Complete Exam date and time: 08/26/2023 8:10 AM Age: 78 years old Clinical indication: Abdominal pain. History of paracentesis. Lower abdominal pain TECHNIQUE: Imaging protocol: Real-time ultrasound of the abdomen with image documentation. Complete exam. COMPARISON: [place] paracentesis abd w [id number] 08/24/2023 1:54 PM FINDINGS: The visualized IVC and aorta are grossly normal in caliber. The hepatic parenchyma is echogenic. Possible microlobulation of the surface of the liver. The liver is enlarged. This is better measured on prior CT (18 cm). Mild to moderate ascites. No biliary ductal dilatation. The common bile duct measures 4.6 mm. Gallbladder sludge without definite stone. No significant gallbladder wall thickening. The right kidney measures 11.3 cm. No suspicious mass or hydronephrosis. The left kidney is not visualized. The pancreas is partially obscurred by overlying bowel gas. The visualized pancreas is unremarkable. The spleen is unremarkable. US/US abdomen complete* [id number] IMPRESSION: 1. Hepatomegaly with hepatic steatosis and possible cirrhosis. There is [id number] ascites. 2. Gallbladder sludge without definite stone. No significant gallbladder wall thickening.
--- NOTE | 2023-08-26 21:37 | USR_ITS ---
PROCEDURE INFORMATION: Exam: US Duplex Lower Extremity Veins, Bilateral Exam date and time: 08/26/2023 7:54 AM Age: 78 years old Clinical indication: Edema, localized; Lower extremity, bilateral; Additional info: Bilateral lower extremity swelling TECHNIQUE: Imaging protocol: Real-time duplex ultrasound of the bilateral extremities with 2-D pena scale, color Doppler flow and spectral waveform analysis including responses to compression and other maneuvers (when performed) with image documentation. Complete exam focused on the lower extremity veins. COMPARISON: CT abdomen pelvis w con* [id number] 08/24/2023 8:12 AM FINDINGS: The common femoral, femoral, popliteal and posterior tibial veins are patent. There is appropriate compression and augmentation. Doppler interogation reveals venous blood flow. US/CV venous duplex [facility] [id number] IMPRESSION: No evidence of deep venous thrombosis.
--- NOTE | 2023-08-26 22:54 | P.PN_ITS ---
Subjective 2 Subjective: The patient continues to endorse that she has no appetite, endorse bilateral lower abdominal pain and some shortness of breath. She denies SOB, f/c, CP, palpitations, coughing, wheezing, nasal congestion. I discussed the results of the abdominal ultrasound with the daughter which suggested hepatomegaly with possible hepatic steatosis and possible cirrhosis vs the Cancer marker of CA125. Informed the patient's daughter that 2 things can be true, which is that the patient could have liver cirrhosis as well as a malignancy at the same time. In terms of liver cirrhosis, we will have to rule out things such as autoimmune hepatitis & primary biliary cirrhosis. Regarding her tumor marker, I contacted the [employer]ATOR on-call, who recommended a pelvic ultrasound as well as a transvaginal ultrasound. The transvaginal ultrasound showed a 9x ~14 cm x 6cm structure that could not be clearly seen due to overlying bowel gas and ascites. Furthermore her peritoneal fluid is growing gram-negative rods, concerning for spontaneous bacterial peritonitis. We discussed getting another paracentesis on 08/27/2023 and getting an MRI of the abdomen/pelvis with and without contrast to better visualize the structures being obstructed by her quickly recurring ascites. Vitals/I&O/Wt Last Vital Signs Temp 98.1 F 08/26/23 20:00 Pulse 92 08/26/23 20:00 Resp 17 08/26/23 20:00 BP 122/73 08/26/23 20:00 Pulse Ox 93 08/26/23 20:00 O2 Del Method Room Air 08/26/23 20:00 08/26/23 08/26/23 08/26/23 06:59 14:59 22:59 Intake Total 240 / 240 170 / 410 Output Total 150 / 350 Balance -150 / 720 240 / 240 170 / 410 Weight last 48 hrs Weight 71.412 kg Weight 71.753 kg Physical Exam 2 Const: GENERAL APPEARANCE: cooperative; not comfortable ORIENTATION/CONSCIOUSNESS: Yes awake, Yes oriented to person, Yes oriented to place and Yes oriented to time HENMT: COMMON NORMALS: normocephalic, atraumatic and external ears normal H EAD & SCALP: normocephalic and atraumatic EXTERNAL EAR: Yes external ears normal MOUTH: Normal oral and palatal mucosa present THROAT: posterior oropharynx normal Eye: COMMON NORMALS: Equal, round and reactive pupils present and conjunctivae normal CONJUNCTIVA: Yes conjunctivae normal PUPIL: Yes Equal, round and reactive pupils present EOM: No EOM abnormal Neck/C-Spine: COMMON NORMALS: Thyroid normal GENERAL: Yes normal visual inspection and Yes trachea midline THYROID: Thyroid normal CAROTIDS: No bruit Lymph: LYMPHATIC: lymphadenopathy OTHER: No cervical supraclavicular, epitrochlear, or bilateral inguinal lymphadenopathy noted Resp: OTHER: Decreased or absent breath sounds in the bilateral lower lung multani. Cardio: OTHER: Regular rate and rhythm with no murmurs, rubs, gallops, or clicks. No carotid bruits, 2+ radial and 2+ dorsalis pedis pulses appreciated GI: OTHER: Bowel sounds positive, but with a distended abdomen, and tenderness to palpation in the bilateral lower quadrants with no rigidity, guarding, or rebound tenderness. No organomegaly appreciated. Extremity: NARRATIVE EXTREMITY EXAM: No clubbing or cyanosis, but anasarca to the groin. GENERAL: Yes cyanosis Neuro: SENSORIUM/ORIENTATION: Yes oriented to person, Yes oriented to place and Yes oriented to time CRANIAL NERVES: Yes CN normal except as noted S PEECH: speech normal SENSORY EXAM: No sensory level loss detected MOTOR EXAM: 5/5 motor strength present throughout and Normal motor muscle tone present throughout Psych: COMMON NORMALS: Normal thought process present and speech normal A PPEARANCE: Yes grossly normal ATTITUDE: Yes calm and Yes engaged SPEECH: Y es normal speech MOOD & AFFECT: Yes sad THOUGHT PROCESS: Normal thought process present THOUGHT CONTENT: Yes Normal thought content present A TTENTION/CONCENTRATION: Yes attention grossly intact MEMORY/COGNITION: Yes memory grossly intact Skin: COMMON NORMALS: no rashes or lesions noted GENERAL SKIN EXAM: no rashes or lesions noted Urinary Catheter Management: Newman: Cath Placed During This Visit: yes Reason for Continuing Indwelling Catheter: Other Urinary Catheter Date of Insertion: 08/24/23 Urinary Catheter Time of Insertion: 12:02 Data 08/26/23 20:35 08/26/23 20:35 Micro: Microbiology 08/24/23 14:14 Gram Stain - Final Peritoneal Fluid Anaerobic Culture - Preliminary Body Fluid Culture - Preliminary Gram Negative Rods 08/24/23 11:42 Urine Culture - Final Urine Catheterized Gram Negative Rods A&P Assessment and plan (1) Ascites: Qualifiers: Ascites type: other type Qualified Code(s): R18.8 - Other ascites (2) Hypokalemia: (3) Acute cystitis: Qualifiers: Hematuria presence: without hematuria Qualified Code(s): N30.00 - Acute cystitis without hematuria (4) Anemia: (5) Hypoalbuminemia: (6) Weakness: (7) Spontaneous bacterial peritonitis: Plan Ms. Thompson is a 78o woman who has not seen a Physician in >30yrs who presented to the ED on 08/24/2023 with 1 week of bilateral pedal edema, abdominal pain and distention, 3 to 4 days of severe diarrhea, and progressive generalized weakness resulting in a known fall without head trauma. In the ED, her UA was concerning for UTI. CT head was done that was negative for any acute intracranial abnormality. Her CXR showed bilateral lower lobe atelectasis. CT abdomen and pelvis was done that showed massive abdominal and pelvic ascites. On admission, an ultrasound-guided paracentesis was done that showed 5.5 L of clear yellow ascites. # Ascites (Liver vs Malignant Ascites): #Differential includes congestive heart failure, liver disease, Nephrotic/nephritic syndrome & malignancy. -Although CHF was felt to be more likely, her ECHO suggests against CHF. Her UA suggest against a renal origin. Her cancer markers are significant for CA125. -Although liver disease was thought to be less likely on admission, it is difficult to say given the amount of ascites that she had on CT scan. Furthermore further discussion with the patient indicates that although she had not seen a PCP in many years, she generally try to stay in good health. She rarely consumes alcohol and if she does it might be 1 or 2 beers per year, and she does not take any herbs or new supplements. Furthermore her ammonia level was 10. -The patient's SAAG is 0.5, which is <1.1 and not indicative of portal hypertension. SBP can cause a SAAG less then 1.1 in addition on TB, malignancy, hypoalbuminemia due to some protein losing enteropathy, and ovarian malignancy. - Continue the 2g Ceftriaxone daily. - I have continued to hold ordering a diuretic for now - F/u acute hepatitis and lipid panel. #Spontaneous bacterial Peritonitis: On Rocephin. #Pelvic mass: Repeat paracentesis and discuss w/ Radiologist about obtaining MRI abd/pelvis to better visualize structures on the same day. # GNR UTI (urinary tract infection): On Ceftriaxone. Follow UCx. #Anasarca: Will need diuresis later. #Diarrhea: Stool studies ordered and pending # Anemia: #Weakness: Patient reports significant weakness over the past week or so. PT/OT eval and treat when appropriate. This could possibly be initiated tomorrow after procedures for investigation of ascites occurred today # Hypoalbuminemia: Monitor. #Hypokalemia: Monitor & replace prn #Moderate Protein Calorie Malnutrition: Consult Mail Handler Assistant Kindra Munroe: [phone]. Attestations 2 Medical Necessity Statement*: Patient remains hospitalized for spontaneous bacterial peritonitis, gram- negative yuri UTI, anasarca, recurrent ascites concerning for newly diagnosed liver cirrhosis versus malignant ascites. Coding Level of Care Code Acute Code for [facility] Fwd Diagnoses Ascites R18.8 Ascites type: other type Hypokalemia E87.6 Acute cystitis without hematuria N30.00 Hematuria presence: without hematuria Anemia D64.9 Hypoalbuminemia E88.09 Weakness R53.1 Spontaneous bacterial peritonitis K65.2
[2023-08-27] VITALS (11 sets, daily range): BP systolic 108–134; BP diastolic 61–75; PULSE 89–105; RESP 15–17; TEMP 36.6–37; O2SAT 91–93; BMI 26.5
[2023-08-27 05:21] LABS: Hepatitis A Antibody IgM Non-Reactive (Nonreactive); Hepatitis B Core IgM Non-Reactive (Nonreactive); Hepatitis B Surface Antigen Non-Reactive (Nonreactive); Hepatitis C Virus Antibody Non-Reactive (Nonreactive)
[2023-08-27 05:43] LABS: Basophils % 0.7 %; Eosinophils % 0.5 %; Lymphocytes # 0.8 10^3/uL (0.8-4.8); Lymphocytes % 13.6 %; Mean Corpuscular Hemoglobin 25.6 pg (27-33); Mean Corpuscular Volume 82.7 fl (85-98); Mean Platelet Volume 8.6 fL (7.4-10.4); Monocytes # 0.5 10^3/uL (0.2-0.9); Monocytes % 7.9 %; Neutrophils # 4.66 10^3/uL (1.8-7.7); Neutrophils % 76.3 %; Nucleated Red Blood Cells % 0 %; Platelet Count 203 10^3/cmm (157-399); Red Blood Count 3.75 10^6/uL (3.85-5.65); Red Cell Distribution Width 18.3 % (12.1-15.1)
[2023-08-27 05:58] LABS: INR 1.09 (0.8-1.2); Partial Thromboplastin Time 27.9 SECONDS (23.9-36.7)
[2023-08-27 06:01] LABS: Alanine Aminotransferase 6 U/L (0-33); Albumin Level 2.1 g/dL (3.5-5.2); Alkaline Phosphatase 72 U/L (35-105); Anion Gap 12.1 (5-19); Aspartate Amino Transferase 10 U/L (0-32); Blood Urea Nitrogen 30 mg/dL (8-23); Carbon Dioxide 23 mmol/L (22-29); Chloride 103 mmol/L (98-107); Globulin 3.1 g/dL (1.3-4.6); Glucose 103 mg/dL (65-115); Magnesium 2.7 mg/dL (1.7-2.3); Osmolality Calculated 284 mOsm/kg (285-295); Phosphorus 3.6 mg/dL (2.5-4.5); Potassium 4.1 mmol/L (3.5-5.1); Sodium 134 mmol/L (136-145); Total Bilirubin 0.2 mg/dL (0.15-1.2); Total Protein 5.2 g/dL (6.6-8.7)
[2023-08-27 06:06] LABS: Cholesterol 81 mg/dL (0-200); HDL Cholesterol 15 mg/dL (60-100); LDL Cholesterol Calculated 28 mg/dL (50-129); LDL HDL Ratio 1.87 RATIO (0.00-3.22); Triglycerides 188 mg/dL (0-150)
[2023-08-27 06:43] LABS: Slide Review Slide Review Perform
[2023-08-27] MEDS: folic acid 1 mg Tablet PO (10:26)
[2023-08-27] MEDS: pantoprazole DR 40 mg Tablet PO (10:26)
--- NOTE | 2023-08-27 10:33 | P.PN_ITS ---
Subjective 2 Subjective: HOSPITAL COURSE: Ms. Thompson is a 78o woman who has not seen a Physician in >30yrs who presented to the ED on 08/24/2023 with 1 week of bilateral pedal edema, abdominal pain and distention, 3 to 4 days of severe diarrhea, and progressive generalized weakness resulting in a known fall without head trauma. In the ED, her UA was concerning for UTI. She was placed on Rocephin. CT head was done that was negative for any acute intracranial abnormality. Her CXR showed bilateral lower lobe atelectasis. CT abdomen and pelvis was done that showed massive abdominal and pelvic ascites. On admission, an ultrasound-guided paracentesis was done that showed 5.5 L of clear yellow ascites. Ascites showed rare gram-negative rods identification still pending Today 08/27/2023: Radiology radiologic studies show a large pelvic mass 9 x 13 x 5. I spoke with radiologist who agrees its most likely ovarian cancer given the amount of ascites. I spoke with [facility] on-call who says the patient will need to see [facility] oncology. And will likely need chemoradiation and surgery. Since the patient already is questioning whether she would want to undergo chemo and radiation I suggested we place a drain for comfort. Patient and family is agreeable. Consulted surgery Dr. Bynum who will place a peritoneal drain tomorrow. Today her biggest complaint is the feeling of bloating being full and excess gas. Vitals/I&O/Wt Last Vital Signs Temp 98.4 F 08/27/23 08:00 Pulse 89 08/27/23 08:00 Resp 16 08/27/23 08:00 BP 127/73 08/27/23 08:00 Pulse Ox 93 08/27/23 08:00 O2 Del Method Room Air 08/27/23 03:10 08/26/23 08/27/23 08/27/23 22:59 06:59 14:59 Intake Total 170 / 410 Output Total 500 / 500 Balance 170 / 410 -500 / -90 Weight last 48 hrs Weight 72.439 kg Weight 71.412 kg Physical Exam 2 Narrative: Patient seen lying in bed with daughter at bedside. Mild distress due to ascites and pain with cough or burping. Heart: Normal S1-S2 without murmurs clicks gallops or rubs Lungs: Clear to auscultation without wheezes rales or rhonchi Abdomen: Taut distention prior site of paracentesis covered without leakage. Extremely tender to touch. No stigmata of liver disease noted Extremities pedal edema Neurologic alert and oriented to person place time and situation nonfocal exam. Urinary Catheter Management: Newman: Cath Placed During This Visit: yes Reason for Continuing Indwelling Catheter: Other Urinary Catheter Date of Insertion: 08/24/23 Urinary Catheter Time of Insertion: 12:02 Data 08/27/23 05:28 08/27/23 05:28 Micro: Microbiology 08/24/23 14:14 Gram Stain - Final Peritoneal Fluid Anaerobic Culture - Preliminary Body Fluid Culture - Preliminary Gram Negative Rods 08/24/23 11:42 Urine Culture - Final Urine Catheterized Gram Negative Rods A&P Assessment and plan (1) Pelvic mass in female: (2) Malignant ascites: (3) Spontaneous bacterial peritonitis: (4) UTI (urinary tract infection): Acute cystitis Qualifiers: Urinary tract infection type: acute cystitis (5) Weakness: (6) Anemia: Likely chronic anemia due to cancer Qualifiers: Anemia type: due to chronic kidney disease Plan # Ascites most likely malignant ascites due to ovarian cancer based on large mass seen on pelvic ultrasound and significant elevation of CA125 - Continue the 2g Ceftriaxone daily. -One-time dose of diuretic to assess patient's response. #Spontaneous bacterial Peritonitis: On Rocephin. #Pelvic mass: Discussed with radiologist today most likely ovarian cancer based on tumor marker # GNR UTI (urinary tract infection): On Ceftriaxone. Follow UCx. #Diarrhea: Stool studies ordered and pending; no diarrhea since admission # Anemia: Likely secondary to chronic disease from malignancy #Weakness: Patient reports significant weakness over the past week or so. PT/OT eval and treat ordered # Hypoalbuminemia: Monitor. #Hypokalemia: Replaced and now stable, will follow with Lasix started #Moderate Protein Calorie Malnutrition: Likely due to malignancy. Further plans: Patient will need to see [facility] oncology in [place] if patient wishes. Otherwise tomorrow will have drain placed in order to go home. I have spoken with patient and 1 daughter who states they will be providing 24-hour care at home. We discussed goals of care and the patient is leaning away from aggressive treatments we also discussed options of hospice. She will discuss with family. For now probably will go home with home health care versus hospice in a day or 2. Also will treat symptoms with Gas-X. However most symptoms unable to be treated until the drain can be placed. Attestations 2 Medical Necessity Statement*: Patient remains hospitalized for spontaneous bacterial peritonitis, gram- negative yuri UTI, anasarca, recurrent ascites requiring Coding Level of Care Code Acute Code for Chg Fwd Diagnoses Pelvic mass in female R19.00 Malignant ascites R18.0 Spontaneous bacterial peritonitis K65.2 UTI (urinary tract infection) N39.0 Urinary tract infection type: acute cystitis Weakness R53.1 Anemia D64.9 Anemia type: due to chronic kidney disease
[2023-08-27] MEDS: FUROsemide 10 mg/mL SDV 4mL 40 MG IVP (11:17)
[2023-08-27] MEDS: HYDROmorphone 1 mg/mL INJ 1 mL IVP (11:25)
--- NOTE | 2023-08-27 12:19 | P.CONIM_ITS ---
Providers/Reason For Consult 2 Consulting Physician/Specialty*: Hospitalist Reason for Consult*: Malignant ascites Attending Physician: Norman Kimbrough DO History of Present Illness History of Present Illness Rowena Thompson is a 78 year old female who has metastatic ovarian cancer. I was consulted to place intraperitoneal drain. This drain is to alleviate the patient's ascites. Medications/Allergies Home Medications Medication Instructions Recorded Confirmed Last Taken Type loperamide 2 mg capsule 4 mg PO .ONE TIME DOSE 08/24/23 08/24/23 08/22/23 History Allergies Allergy/AdvReac Type Severity Reaction Status Date / Time No Known Allergies Allergy Verified 08/24/23 07:29 Current Medications Generic Name Dose Route Start Last Admin Trade Name Freq PRN Reason Stop Dose Admin Folic Acid 1 mg 08/25/23 09:00 08/27/23 10:26 Folic Acid 1 Mg Tablet PO 1 mg DAILY FUAD Administration Heparin Sodium (Porcine) 5,000 unit 08/24/23 22:00 08/26/23 23:00 Heparin 5,000 Unit/Ml Inj 1 Ml SUBCUT 5,000 unit Q12H FUAD Administration Hydromorphone HCl 1 mg 08/25/23 21:32 08/27/23 11:25 Hydromorphone 1 Mg/Ml Inj 1 Ml IVP 1 mg Q4H PRN Administration PAIN Ceftriaxone Sodium 2,000 mg/ 50 mls @ 100 mls/hr 08/24/23 16:00 08/26/23 18:31 Sodium Chloride IV Infused Q24H FUAD Infusion Protocol Pantoprazole Sodium 40 mg 08/25/23 09:00 08/27/23 10:[address] 40 Mg Tablet PO 40 mg DAILY FUAD Administration PFSH Acute 2 PFSH: Family History Mother Carotid artery disease Father No problems noted. Social History Smoking and tobacco/nicotine status: never used tobacco/nicotine Second hand smoke exposure: No Alcohol intake: never Substance/Drug Use: never Lives independently: Yes Vitals/I&O/Wt Last Vital Signs Temp 98.4 F 08/27/23 08:00 Pulse 89 08/27/23 08:00 Resp 16 08/27/23 11:25 BP 127/73 08/27/23 08:00 Pulse Ox 93 08/27/23 11:25 O2 Del Method Room Air 08/27/23 03:10 08/26/23 08/27/23 08/27/23 22:59 06:59 14:59 Intake Total 170 / 410 Output Total 500 / 500 Balance 170 / 410 -500 / -90 Weight last 48 hrs Weight 159 lb 11.2 oz Weight 157 lb 7 oz Physical Exam 2 Narrative: General: No acute distress Lungs: Clear to auscultation Heart: Regular rate and rhythm Abdomen: Soft, somewhat distended. There is a positive fluid wave. The patient has normal active bowel sounds. Extremities: There is no clubbing cyanosis or edema Neurologic: The patient seems to be somewhat confused. She is somewhat loopy. The patient just received some Dilaudid. Her cheeks are flushed. She is unable to concentrate at this particular moment in time. Urinary Catheter Management: Newman: Cath Placed During This Visit: yes Reason for Continuing Indwelling Catheter: Other Urinary Catheter Date of Insertion: 08/24/23 Urinary Catheter Time of Insertion: 12:02 Data 08/27/23 05:28 08/27/23 05:28 Micro: Microbiology 08/24/23 14:14 Gram Stain - Final Peritoneal Fluid Anaerobic Culture - Preliminary Body Fluid Culture - Final Proteus mirabilis 08/24/23 11:42 Urine Culture - Final Urine Catheterized Gram Negative Rods Other data: Of her personally reviewed all the patient's labs as well as imaging. A&P Assessment and plan (1) Malignant ascites: I have seen and examined this patient. I have explained to her the risk and benefits of placing a intraperitoneal drain to manage the patient's ascites. The patient seems to understand. Unfortunately because of the patient's current mental state I do not believe she can sign her consent. Will come back and see the patient in an hour or so. Will call the operating room and she will get the patient on the schedule for a laparoscopic percutaneous drain placement tomorrow. Coding Level of Care Code 21259 Diagnoses Malignant ascites R18.0
[2023-08-27] MEDS: simethicone 80 mg Chew PO ×3 (13:21→21:04)
--- NOTE | 2023-08-27 13:34 | PC.SOCIAL ---
Pg 2 IMM Explained to pt Pg 2 IMM. No questions voiced. Provided pt a copy. Initialed, dated, & timed a copy & placed in chart.
[2023-08-27] MEDS: cefTRIAXone 2,000 MG in sodium chloride 0.9% (plus) 50 ML 100 MG IV (16:28)
[2023-08-28] VITALS (18 sets, daily range): BP systolic 113–137; BP diastolic 55–72; PULSE 82–94; RESP 12–18; TEMP 36.4–37.4; O2SAT 90–100
[2023-08-28 05:50] LABS: Basophils % 0.5 %; Eosinophils % 0.1 %; Hematocrit 29.8 % (36-47); Lymphocytes # 0.8 10^3/uL (0.8-4.8); Lymphocytes % 8.9 %; Mean Corpuscular HGB Conc 31.5 g/dL (30-55); Mean Corpuscular Hemoglobin 25.8 pg (27-33); Mean Corpuscular Volume 81.9 fl (85-98); Monocytes # 0.6 10^3/uL (0.2-0.9); Monocytes % 6.7 %; Neutrophils # 6.97 10^3/uL (1.8-7.7); Neutrophils % 82.7 %; Nucleated Red Blood Cells % 0 %; Platelet Count 234 10^3/cmm (157-399); Red Blood Count 3.64 10^6/uL (3.85-5.65); Red Cell Distribution Width 18.1 % (12.1-15.1); White Blood Count 8.42 10^3/uL (3.29-11.43)
[2023-08-28 06:08] LABS: Slide Review Slide Review Perform
[2023-08-28 06:11] LABS: Anion Gap 15.1 (5-19); Blood Urea Nitrogen 26 mg/dL (8-23); Carbon Dioxide 23 mmol/L (22-29); Chloride 104 mmol/L (98-107); Creatinine Clr Calc Pharmacy 57.8667; Glucose 124 mg/dL (65-115); Magnesium 2.4 mg/dL (1.7-2.3); Osmolality Calculated 292 mOsm/kg (285-295); Potassium 4.1 mmol/L (3.5-5.1); Sodium 138 mmol/L (136-145)
[2023-08-28 06:14] LABS: Phosphorus 3.4 mg/dL (2.5-4.5)
[2023-08-28] MEDS: HYDROmorphone 1 mg/mL INJ 1 mL 0.5 MG IVP ×2 (06:20→21:23)
[2023-08-28] MEDS: sodium chloride 0.9% 1,000 ML 100 ML IV (06:29)
[2023-08-28] MEDS: ceFAZolin 1,000 mg SDV 1000 MG IVP (07:30)
[2023-08-28] MEDS: BUPivacaine 0.25% INJ 10 mL INJECTION (07:37)
--- NOTE | 2023-08-28 07:54 | P.ANESASSM_ITS ---
Pre-Anesthetic Assessment Height/Weight: Height 1.65 m Weight 70.108 kg Temp Pulse Resp BP Pulse Ox O2 Del Method 99.3 F 92 16 124/63 93 Room Air 08/28/23 06:56 08/28/23 06:56 08/28/23 06:56 08/28/23 06:56 08/28/23 06:56 08/28/23 06:56 Operation Date: 08/28/23 07:00 Proposed Procedures p Laparoscopic Peritoneal Cath Inserti(Not Applicable) - Nancy Bynum MD Familial anesthetic complications: none Was Beta Galo taken within 24 hours: N/A Was Clonidine taken within 24 hours: N/A Last intake: Intake Last Liquid Date 08/27/23 Last Liquid Time 23:55 Last Solid Date 08/27/23 Last Solid Time 23:00 Social No alcohol and No tobacco Exam alert, oriented x 3, clear to auscultation bilaterally and regular rate & rhythm Airway Submandibular: within normal limits Cervical ROM: within normal limits Mallampati: Class II Dentition: chipped CV/HEM Anemia GI Ascites (Ovarian CA) Musc/skel Weakness Anesthetic Plan ASA status: 3 Anesthesia: General Medications/Allergies Home Medications Medication Instructions Recorded Confirmed Last Taken Type loperamide 2 mg capsule 4 mg PO .ONE TIME DOSE 08/24/23 08/24/23 08/22/23 History Allergies Allergy/AdvReac Type Severity Reaction Status Date / Time No Known Allergies Allergy Verified 08/24/23 07:29 Current Medications Generic Name Dose Route Start Last Admin Trade Name Freq PRN Reason Stop Dose Admin Folic Acid 1 mg 08/25/23 09:00 08/27/23 10:26 Folic Acid 1 Mg Tablet PO 1 mg DAILY FUAD Administration Heparin Sodium (Porcine) 5,000 unit 08/24/23 22:00 08/26/23 23:00 Heparin 5,000 Unit/Ml Inj 1 Ml SUBCUT 5,000 unit Q12H FUAD Administration Hydromorphone HCl 0.5 mg 08/27/23 12:21 08/28/23 06:20 Hydromorphone 1 Mg/Ml Inj 1 Ml IVP 0.5 mg Q4H PRN Administration PAIN Ceftriaxone Sodium 2,000 mg/ 50 mls @ 100 mls/hr 08/24/23 16:00 08/27/23 16:58 Sodium Chloride IV Infused Q24H FUAD Infusion Protocol Sodium Chloride 1,000 mls @ 100 mls/hr 08/28/23 06:00 08/28/23 06:29 Sodium Chloride 0.9% IV 100 mls/hr .Q10H FUAD Administration Pantoprazole Sodium 40 mg 08/25/23 09:00 08/27/23 10:[address] 40 Mg Tablet PO 40 mg DAILY FUAD Administration Simethicone 80 mg 08/27/23 13:00 08/27/23 21:04 Simethicone 80 Mg Chew PO 80 mg QID FUAD Administration PFSH Anesthesia Family History Mother Carotid artery disease Father No problems noted. Social History Smoking and tobacco/nicotine status: never used tobacco/nicotine Second hand smoke exposure: No Alcohol intake: never Substance/Drug Use: never Lives independently: Yes Supplemental COUNTS INCLUDE 234 BEDS AT THE [facility] Information She specifically denied any medical problems, but does not have a primary care provider. She has not had any screening exams. She denies any [id number] medications and has never had any surgeries. Data Anesthesia 08/28/23 05:40 08/28/23 05:40 Short CBC 08/26/23 08/27/23 08/28/23 Range/Units 20:35 05:28 05:40 WBC 5.55 6.10 8.42 (3.29-11.43) 10^3/uL Hgb 9.30 L 9.60 L 9.40 L (11.27-16.99) g/dL Hct 29.2 L 31.0 L 29.8 L (36-47) % MCV 80.4 L 82.7 L 81.9 L (85-98) fl Plt Count 215 203 234 (157-399) 10^3/cmm Neut % (Auto) 76.2 76.3 82.7 % Neut # (Auto) 4.23 4.66 6.97 (1.8-7.7) 10^3/uL BMP 08/26/23 08/27/23 08/28/23 20:35 05:28 05:40 Sodium 136 134 L 138 Potassium 4.2 4.1 4.1 Chloride 104 103 104 Carbon Dioxide 22 23 23 BUN 32 H 30 H 26 H Creatinine 0.7 0.6 0.6 Glucose 122 H 103 124 H Calcium 7.8 L 8.0 L 8.0 L Liver Function 08/26/23 08/27/23 Range/Units 20:35 05:28 Total Bilirubin 0.2 0.2 (0.15-1.2) mg/dL Direct Bilirubin 0.20 0.20 (0.00-0.30) mg/dL AST 11 10 (0-32) U/L ALT 6 6 (0-33) U/L Alkaline Phosphatase 72 72 (35-105) U/L Albumin 2.0 L 2.1 L (3.5-5.2) g/dL Coags 08/26/23 08/27/23 20:35 05:28 PT 13.80 14.40 INR 1.03 1.09 APTT 27.1 27.9 Microbiology 08/24/23 23:45 Stool Lactoferrin - Final Stool Occult Blood (FIT) - Final 08/24/23 14:14 Gram Stain - Final Peritoneal Fluid Anaerobic Culture - Preliminary Body Fluid Culture - Final Proteus mirabilis Cardiac Studies: 2 Echocardiogram 08/24/23
--- NOTE | 2023-08-28 08:03 | P.OP_ITS ---
Operative Report Date of procedure: August 28, 2023 Pre-op diagnosis: Malignant ascites Post-op diagnosis: same Procedure done: Placement of intra-abdominal peritoneal catheter under laparoscopic guidance Implants: Peritoneal catheter Pathology: none sent Surgeon: Nancy Bynum Surgeon: Nancy Bynum MD Anesthesia: General Estimated blood loss (mL): 5 Complications: None noted Findings: Large amount of malignant, foul-smelling ascites. Approximate 1500 cc was drained. Condition: stable Disposition: PACU Brief History: This is a 78-year-old female who has malignant ascites from ovarian cancer. I w as asked to place an intra-abdominal catheter for drainage of the patient's recurrent ascites Procedure: The patient brought to the operative room placed in supine position. After adequate general endotracheal anesthesia, the patient's abdomen was prepped and draped in usual sterile fashion. Following this a timeout was performed. The patient identifiers as well as the goals of procedure were discussed. Everyone in the room agreed. 0.25% Marcaine was used to anesthetize the superior aspect of the umbilicus. A curvilinear incision was made with a skin knife. Now, through this incision a 5 mm port was placed. The abdomen was now insufflated to 15 mmHg. Marcaine was used in the right upper quadrant and a area where we could easily see the intention in the on the intraperitoneal surface. Marcaine was used. Following this an incision was made with an 11 blade knife. Through this incision the introducer needle was slowly placed through the wound into the abdomen. I was able to see the tip of the needle under direct vision. Now a guidewire was advanced to approximately 30 cm. The needle was now removed. The dilator was now placed over the guidewire into the abdomen. We broke into a pocket of ascites. A large amount of foul-smelling clear appearing ascites port through the catheter. I removed the guidewire. I placed suction. Once the ascites drainage slowed down. We had ended up suctioning out probably approximately a liter. We probably lost another 500 cc on the bed. Now the guidewire and the initial dilator was removed. This left the tear-away sheath in place. Now the peritoneal dialysis catheter was threaded through the sheath into the abdomen. The tear-away sheath was now removed. Leaving the dialysis catheter in place. Marcaine was again used and a separate incision approximately 5 to 10 cm away from our previous incision. And then using a hemostat through this incision we came out of the previous incision and then we were able to pull the dialysis catheter through the first incision and out of the second incision. This therefore buried the dialysis catheter. This incision was closed with francia. A 5 mm port at the umbilicus was now removed. This port incision was closed with francia. An appropriate adapter than the stopcock was placed on the dialysis catheter. I do not believe that we created a bowel injury. I believe the foul-smelling fluid is the patient's malignant ascites. Will obtain a postoperative x-ray. The family is not in the waiting room. Will see if the family is up in the patient's room. Will explain to them the above findings.
--- NOTE | 2023-08-28 08:22 | XR_ITS ---
WS: [id number] KUB, AP view, 08/28/2023 Clinical Data: dialysis catheter placement Comparison: None. Findings: There is a dialysis catheter which is curled in the true pelvis. No abnormal intraabdominal masses or calcifications are seen. There is no dilatated small bowel or ev idence of obstruction. There is air in the stomach, small bowel and colon. Impression: Peritoneal dialysis catheter which ends in true pelvis.
--- NOTE | 2023-08-28 08:33 | PC.OT ---
HOLD OT TREATMENT TODAY DUE TO SURGERY. WILL ATTEMPT AGAIN TOMORROW.
--- NOTE | 2023-08-28 13:35 | ANE.PACU2 ---
Inpatient post-anesthesia follow up: Airway intact: Yes Vital signs: Temperature 97.6 F Pulse Rate 85 Respiratory Rate 16 Blood Pressure 113/69 Pulse Oximetry 90 Oxygen Delivery Me thod [ Room Air Current Rate & Del mahnaz] Oxygen Delivery Me thod Room Air Oxygen Flow Rate 2 Fraction of Inspir ed Oxygen Hydration adequate: Yes Nausea and vomiting: No Pain level: 3 Mental status: Baseline
--- NOTE | 2023-08-28 13:36 | P.PN_ITS ---
Subjective 2 Subjective: Seen this morning. Granddaughter and [id number] at bedside. When you asked the patient any questions she says I do not know. Unable to tell me whether she would be interested in further treatment or not for this new mass that was found. Granddaughter suggested talk to patient's daughter Ms. Arguelles. I will be calling her today. 1500 cc fluid was removed from pelvis area and it was very foul-smelling as per report. Peritoneal fluid growing Proteus mirabile sensitive to levofloxacin, ceftriaxone resistant to tetracycline. Vitals/I&O/Wt Last Vital Signs Temp 97.6 F 08/28/23 09:10 Pulse 85 08/28/23 09:40 Resp 16 08/28/23 09:10 BP 113/69 08/28/23 09:40 Pulse Ox 90 08/28/23 09:40 O2 Del Method Room Air 08/28/23 09:40 O2 Flow Rate 2 08/28/23 08:52 08/27/23 08/28/23 08/28/23 22:59 06:59 14:59 Intake Total 50 / 50 50 / 50 Output Total 1000 / 1000 200 / 1200 20 / 20 Balance -950 / -950 -200 / -1150 30 / 30 Weight last 48 hrs Weight 70.108 kg Weight 72.439 kg Physical Exam 2 Narrative: Patient seen lying in bed with granddaughter at bedside. Alert however is confused. Heart: Normal S1-S2 without murmurs clicks gallops or rubs Lungs: Clear to auscultation without wheezes rales or rhonchi Abdomen: Soft, mildly tender to palpation throughout bilateral lower quadrants. No stigmata of liver disease noted Extremities pedal edema Able to move all 4 extremities Urinary Catheter Management: Newman: Cath Placed During This Visit: yes Reason for Continuing Indwelling Catheter: Required Immobilization for Trauma or Surgery or Anesthesia Urinary Catheter Date of Insertion: 08/24/23 Urinary Catheter Time of Insertion: 12:02 Data 08/28/23 05:40 08/28/23 05:40 Micro: Microbiology 08/24/23 14:14 Gram Stain - Final Peritoneal Fluid Anaerobic Culture - Preliminary Body Fluid Culture - Final Proteus mirabilis 08/24/23 23:45 Stool Lactoferrin - Final Stool Occult Blood (FIT) - Final A&P Assessment and plan (1) Pelvic mass in female: (2) Malignant ascites: (3) Spontaneous bacterial peritonitis: (4) UTI (urinary tract infection): Acute cystitis Qualifiers: Urinary tract infection type: acute cystitis (5) Weakness: (6) Anemia: Likely chronic anemia due to cancer Qualifiers: Anemia type: due to chronic kidney disease Plan #Altered mental status # Ascites most likely malignant ascites due to ovarian cancer based on large mass seen on pelvic ultrasound and significant elevation of CA125 - Continue the 2g Ceftriaxone daily. -One-time dose of diuretic to assess patient's response. #Spontaneous bacterial Peritonitis: On Rocephin. Continue that for now. Proteus mirabilis growing in ascitic fluid. Sensitive to levofloxacin, Augmentin, ceftriaxone. ? Check blood cultures. #Pelvic mass: Discussed with radiologist today most likely ovarian cancer based on tumor marker # GNR UTI (urinary tract infection): On Ceftriaxone. Follow UCx. #Diarrhea: Stool studies ordered and pending; no diarrhea since admission # Anemia: Likely secondary to chronic disease from malignancy #Weakness: Patient reports significant weakness over the past week or so. PT/OT eval and treat ordered # Hypoalbuminemia: Monitor. #Hypokalemia: Replaced and now stable, will follow with Lasix started #Moderate Protein Calorie Malnutrition: Likely due to malignancy. Further plans: I had a long talk with patient's daughter over the phone who is a nurse practitioner. Answered all her questions to her satisfaction. Will be referring patient to gynecological oncology at discharge. Peritoneal catheter has been placed. I have recommended not to drain more than a liter at a time if she starts to develop hypotension to bring her to the hospital. We will be prescribing pain meds at discharge. Patient's daughter states that patient's mental status is not at baseline at this time. She has been confused last few days however that is not her baseline at all. Normally she is very sharp. I have ordered for blood cultures, vitamin B12, ammonia, TSH at this time. This is probably metabolic encephalopathy due to SBP versus hepatic encephalopathy. Possible cirrhosis on ultrasound however CT abdomen did not show any evidence of it. I will do a CT head as well to rule out brain mets. MRI is a better study and patient will definitely need a PET scan as an outpatient. Will talk with radiology to see if biopsy can be obtained inpatient. Also will treat symptoms with Gas-X. However most symptoms unable to be treated until the drain can be placed. Attestations 2 Medical Necessity Statement*: requires continued wokrup for ams Diagnoses Pelvic mass in female R19.00 Malignant ascites R18.0 Spontaneous bacterial peritonitis K65.2 UTI (urinary tract infection) N39.0 Urinary tract infection type: acute cystitis Weakness R53.1 Anemia D64.9 Anemia type: due to chronic kidney disease
--- NOTE | 2023-08-28 14:06 | CT_ITS ---
WS: [id number] CT HEAD TECHNIQUE: Noncontrast CT of the head obtained from the skullbase to the vertex. CLINICAL INFORMATION: brain mets? ams COMPARISON: 08/24/2023 DLP: 1190.[address] scans at [facility] use at least one of these dose optimization techniques: automated e xposure control; mA and/or kV adjustment per patient size (includes targeted exams where dose is matc hed to clinical indication); or iterative reconstruction. FINDINGS: No evidence of intracranial hemorrhage or mass effect. Ventricular system and basal cisterns are maxwell nt. Mild small vessel changes with moderate parenchymal volume loss. No extra-axial fluid collections . No evidence of mass or mass effect. Frothy secretions within the LEFT sphenoid sinus. Mastoid air cells are well aerated. Normal posterio r nasopharynx and parapharyngeal fat. IMPRESSION: 1. No evidence of intracranial hemorrhage or mass effect. 2. Mild small vessel changes. Mild parenchymal volume loss. 3. No evidence of intracranial mass or mass effect. 4. LEFT sphenoid sinusitis. 5. No acute intracranial findings.
[2023-08-28 16:09] LABS: Ammonia 35 umol/L (11-51)
[2023-08-28 16:32] LABS: Thyroid Stimulating Hormone 1.22 uIU/mL (0.27-4.20); Vitamin B12 711 pg/mL (232-1245)
[2023-08-28] MEDS: zolpidem 5 mg Tablet PO (21:24)
[2023-08-28] MEDS: lactated ringers 1,000 ML 100 ML IV (21:26)
[2023-08-28] MEDS: heparin 5,000 unit/mL INJ 1 mL 5000 UNIT SUBCUT (22:22)
[2023-08-28] MEDS: simethicone 80 mg Chew PO (22:22)
[2023-08-29] VITALS (11 sets, daily range): BP systolic 115–133; BP diastolic 65–75; PULSE 77–93; RESP 16–18; TEMP 36.4–36.9; O2SAT 93–96
[2023-08-29 06:19] LABS: Basophils % 0.5 %; Hematocrit 29.2 % (36-47); Lymphocytes # 0.8 10^3/uL (0.8-4.8); Lymphocytes % 8.9 %; Mean Corpuscular HGB Conc 30.1 g/dL (30-55); Mean Corpuscular Hemoglobin 25.4 pg (27-33); Mean Corpuscular Volume 84.1 fl (85-98); Mean Platelet Volume 9.1 fL (7.4-10.4); Monocytes # 0.6 10^3/uL (0.2-0.9); Monocytes % 6.3 %; Neutrophils # 7.22 10^3/uL (1.8-7.7); Neutrophils % 83.3 %; Nucleated Red Blood Cells % 0 %; Platelet Count 235 10^3/cmm (157-399); Red Blood Count 3.47 10^6/uL (3.85-5.65); Red Cell Distribution Width 18.4 % (12.1-15.1); White Blood Count 8.67 10^3/uL (3.29-11.43)
[2023-08-29 06:41] LABS: Anion Gap 13.5 (5-19); Blood Urea Nitrogen 26 mg/dL (8-23); Calcium 7.8 mg/dL (8.5-10.5); Carbon Dioxide 24 mmol/L (22-29); Chloride 107 mmol/L (98-107); Glucose 139 mg/dL (65-115); Magnesium 2.5 mg/dL (1.7-2.3); Osmolality Calculated 297 mOsm/kg (285-295); Potassium 4.5 mmol/L (3.5-5.1); Sodium 140 mmol/L (136-145)
[2023-08-29 07:01] LABS: Phosphorus 2.9 mg/dL (2.5-4.5)
[2023-08-29] MEDS: lactated ringers 1,000 ML 100 ML IV ×2 (08:33→21:20)
[2023-08-29 09:35] LABS: Cyto Order Verification Order Verified
[2023-08-29] MEDS: folic acid 1 mg Tablet PO (10:20)
[2023-08-29] MEDS: simethicone 80 mg Chew PO ×4 (10:21→21:19)
[2023-08-29] MEDS: pantoprazole DR 40 mg Tablet PO (10:21)
[2023-08-29] MEDS: heparin 5,000 unit/mL INJ 1 mL 5000 UNIT SUBCUT ×2 (10:21→21:21)
[2023-08-29] MEDS: morphine IR 15 mg Tablet PO (10:42)
--- NOTE | 2023-08-29 13:40 | PC.SOCIAL ---
IMM Updated Updated pt on IMM. No questions voiced. Provided pt a copy. Initialed, dated, & timed copy in chart.
--- NOTE | 2023-08-29 14:16 | PM.PN ---
Subjective Subjective: seen this am patient seen at bedside she is alert oriented she says its tough on decide on what to do she is unsure if she wants to proceed with biopsy but if she does proceed with biopsy she is unsure if she will want chemo or radiation if this turns out to be malignant daughter who is an DRILLING SUPERVISOR is at bedside requesting arevalo removal pelvic drain fluid sample was never sent for culture, will send sample today Vitals/I&O/Wt Last Vital Signs Temp 98.3 F 08/29/23 12:00 Pulse 93 08/29/23 12:00 Resp 17 08/29/23 12:00 BP 133/75 08/29/23 12:00 Pulse Ox 93 08/29/23 12:00 O2 Del Method Room Air 08/29/23 03:40 O2 Flow Rate 2 08/28/23 08:52 08/28/23 08/29/23 08/29/23 22:59 06:59 14:59 Intake Total 480 / 770 1240 / 1240 Output Total 450 / 470 Balance 480 / 750 -450 / 300 1240 / 1240 Weight last 48 hrs Weight 71.809 kg Weight 70.108 kg Physical Exam Narrative: Patient seen lying in bed with family at bedside. Alert however is confused. Heart: Normal S1-S2 without murmurs clicks gallops or rubs Lungs: Clear to auscultation without wheezes rales or rhonchi Abdomen: Soft, mildly tender to palpation throughout bilateral lower quadrants. No stigmata of liver disease noted Extremities pedal edema Able to move all 4 extremities Urinary Catheter Management: Arevalo: Cath Placed During This Visit: yes Reason for Continuing Indwelling Catheter: Required Immobilization for Trauma or Surgery or Anesthesia Urinary Catheter Date of Insertion: 08/24/23 Urinary Catheter Time of Insertion: 12:02 Data 08/29/23 05:53 08/29/23 05:53 Micro: Microbiology 08/24/23 14:14 Gram Stain - Final Peritoneal Fluid Anaerobic Culture - Preliminary Bacteroides capillosus Body Fluid Culture - Final Proteus mirabilis 08/28/23 15:32 Blood Culture - Preliminary Blood SPECIMEN COLLECTED 08/28/23 15:29 Blood Culture - Preliminary Blood SPECIMEN COLLECTED A&P Assessment and plan (1) Pelvic mass in female: (2) Malignant ascites: (3) Spontaneous bacterial peritonitis: (4) UTI (urinary tract infection): Acute cystitis Qualifiers: Urinary tract infection type: acute cystitis (5) Weakness: (6) Anemia: Likely chronic anemia due to cancer Qualifiers: Anemia type: due to chronic kidney disease Plan #Altered mental status - resolved # Ascites most likely malignant ascites due to ovarian cancer based on large mass seen on pelvic ultrasound and significant elevation of CA125 - Continue the 2g Ceftriaxone daily. #Spontaneous bacterial Peritonitis: On Rocephin. Continue that for now. Proteus mirabilis growing in ascitic fluid. Sensitive to levofloxacin, Augmentin, ceftriaxone. ? Check blood cultures. NTD send pelvic drain sample for culture and cytology #Pelvic mass: Discussed with radiologist today most likely ovarian cancer based on tumor marker # GNR UTI (urinary tract infection): On Ceftriaxone. Follow UCx. #Diarrhea: Stool studies ordered and pending; no diarrhea since admission # Anemia: Likely secondary to chronic disease from malignancy #Weakness: Patient reports significant weakness over the past week or so. PT/OT eval and treat ordered # Hypoalbuminemia: Monitor. #Hypokalemia: Replaced and now stable, will follow with Lasix started #Moderate Protein Calorie Malnutrition: Likely due to malignancy. Further plans: talked with radiology, unable to do biopsy here as pt needs gync-onc. pt to go home in AM. Family needs today to prepare for her arrival they want home health however iv been told by piano case and bench assembler that PCP has to refer them for that. Will setup PCP appointment will provide referral to instrument lens grinder-onc in [facility] Will send script for pain medicine at dc will discuss with pain management Attestations Medical Necessity Statement*: plan for dc in am on oral abx Diagnoses Pelvic mass in female R19.00 Malignant ascites R18.0 Spontaneous bacterial peritonitis K65.2 UTI (urinary tract infection) N39.0 Urinary tract infection type: acute cystitis Weakness R53.1 Anemia D64.9 Anemia type: due to chronic kidney disease
[2023-08-29 17:27] LABS: PATH Referral YES
[2023-08-29 17:28] LABS: Apprearance, Body Fluid CLOUDY
[2023-08-29 17:30] LABS: Color, Body Fluid OTHER
[2023-08-29] MEDS: cefTRIAXone 2,000 MG in sodium chloride 0.9% (plus) 50 ML 100 MG IV (17:35)
[2023-08-29 18:15] LABS: Albumin Body Fluid 0.4 g/dL; Total Protein Body Fluid 0.9 g/dL
[2023-08-29] MEDS: zolpidem 5 mg Tablet PO (21:19)
[2023-08-29] MEDS: HYDROmorphone 1 mg/mL INJ 1 mL 0.5 MG IVP (21:21)
[2023-08-30 04:24] VITALS: BP 126/73; PULSE 119; RESP 16; TEMP 36.8; O2SAT 93
[2023-08-30 06:05] LABS: Anion Gap 15.8 (5-19); Blood Urea Nitrogen 25 mg/dL (8-23); Calcium 7.9 mg/dL (8.5-10.5); Carbon Dioxide 20 mmol/L (22-29); Chloride 106 mmol/L (98-107); Glucose 117 mg/dL (65-115); Osmolality Calculated 289 mOsm/kg (285-295); Potassium 4.8 mmol/L (3.5-5.1); Sodium 137 mmol/L (136-145)
[2023-08-30 07:21] VITALS: BP 93/68; PULSE 122; RESP 16; TEMP 36.6; O2SAT 91
[2023-08-30 07:29] LABS: Basophils # 0.1 10^3/uL (0.0-0.1); Basophils % 0.6 %; Eosinophils % 0.1 %; Hematocrit 37.4 % (36-47); Lymphocytes % 5.4 %; Mean Corpuscular HGB Conc 31.6 g/dL (30-55); Mean Corpuscular Hemoglobin 25.8 pg (27-33); Mean Corpuscular Volume 81.7 fl (85-98); Mean Platelet Volume 8.9 fL (7.4-10.4); Monocytes # 0.6 10^3/uL (0.2-0.9); Monocytes % 3.4 %; Neutrophils # 16.25 10^3/uL (1.8-7.7); Neutrophils % 89.9 %; Nucleated Red Blood Cells % 0 %; Platelet Count 416 10^3/cmm (157-399); Red Blood Count 4.58 10^6/uL (3.85-5.65); Red Cell Distribution Width 18.6 % (12.1-15.1); White Blood Count 18.05 10^3/uL (3.29-11.43)
[2023-08-30 08:12] LABS: Slide Review Slide Review Perform
[2023-08-30 08:24] VITALS: RESP 22
[2023-08-30] MEDS: HYDROmorphone 1 mg/mL INJ 1 mL 0.5 MG IVP (08:24)
[2023-08-30] MEDS: ondansetron 2 mg/ML SDV 2 mL 4 MG IVP (08:27)
--- NOTE | 2023-08-30 08:36 | XRR_ITS ---
PROCEDURE INFORMATION: Exam: XR Chest Exam date and time: 08/30/2023 10:00 AM Age: 78 years old Clinical indication: Other: Weakness; Additional info: Follow up TECHNIQUE: Imaging protocol: Radiologic exam of the chest. Views: 1 view. COMPARISON: CR XR chest 1V portable [id number] 08/24/2023 8:06 AM FINDINGS: Lungs: Increased left lower lung pneumonitis and atelectasis. Unchanged right lower lung atelectasis and pneumonitis. Pleural spaces: Increased small bilateral pleural effusions. No pneumothorax. Heart/Mediastinum: Unremarkable. No cardiomegaly. Bones/joints: Unchanged superior subluxation right humeral head. Unchanged mild scoliosis with mild and moderate multilevel spondylosis. XR/XR chest 1V portable [id number] IMPRESSION: 1. Increased left lower lung pneumonitis and atelectasis. 2. Unchanged right lower lung atelectasis and pneumonitis. 3. Increased small bilateral pleural effusions.
--- NOTE | 2023-08-30 08:55 | ECG_ITS ---
[facility] Test Date: 2023-08-29 Pat Name: Rowena Thompson Department: Room: 272 Gender: Female Analytics Manager: : [id number] Requested By: Thao Chaves Order Number: [id number] Jose MD: Jai Grimaldo M.D. Measurements Intervals Bud Rate: 102 P: -43 ID: [id number] QRS: -19 QRSD: 83 T: 29 QT: 327 QTc: 426 Interpretive Statements SINUS TACHYCARDIA ABNORMAL RHYTHM ECG INTERPRETATION BASED ON A DEFAULT AGE OF 40 YEARS Compared to ECG 08/29/2023 21:04:20 No significant changes Electronically Signed On 08-31-2023 19:12:48 SEATING CAPTAIN by Jai Grimaldo M.D. [email or web address]
--- NOTE | 2023-08-30 09:40 | CT_ITS ---
WS: [id number] CT CHEST, ABDOMEN, AND PELVIS TECHNIQUE: Contrast-enhanced CT of the chest, abdomen, and pelvis with coronal and sagittal reformatt ed images. CLINICAL INFORMATION: infection?, pelvic mass? foul smelling ascites COMPARISON: CT 08/24/2023 DLP: 1104.[address] scans at [facility] use at least one of these dose optimization techniques: automated e xposure control; mA and/or kV adjustment per patient size (includes targeted exams where dose is matc hed to clinical indication); or iterative reconstruction. CT CHEST: Small-moderate LEFT pleural effusion increased compared to previous. Compressive atelectasis LEFT low er lobe. Trace RIGHT pleural fluid. Small pericardial effusion. Aorta calcification. Normal caliber t horacic aorta. Proximal main pulmonary arteries appear normal. Interstitial edema in the lung bases. Slight patchy infiltrates or atelectasis RIGHT lower lobe. No mass or hilar lymphadenopathy. No axill nirmal lymphadenopathy. Shallow inspiration. CT ABDOMEN AND PELVIS: Interval surgical drain placement with tip in the pelvis in good position. Air-fluid levels within th e pelvic ascites likely due to recent surgery. Air-fluid level in the bladder. Peripheral enhancing p elvic and abdominal ascites compatible with infection. A few scattered pockets of free air within the upper abdomen likely postoperative. Small esophageal hiatal hernia. Air-fluid level in the stomach. Slight cirrhotic configuration to the liver. Slight heterogeneous hepatic parenchymal enhancement. Portal vein and splenic vein appear pat ent. Normal pancreatic parenchymal enhancement. Heterogeneous enhancement within the peripheral dorsa l spleen suspicious for ischemia or infarct. This appears new from previous. Reactive lymph nodes in the upper abdomen. Adrenal glands are normal. Normal renal parenchymal enhancement. No hydronephrosis . Small bilateral renal cysts. Atrophic uterus. Diffuse body wall anasarca. Normal caliber abdominal aorta. Aortic calcification. Celiac and SMA appe ar patent. Few sigmoid diverticuli. No evidence of acute diverticulitis. Prominent heterogeneous enha ncement involving the RIGHT colon may be reactive versus colitis. Areas of induration in the central mesentery and RIGHT upper quadrant mesentery may be due to edema. Peritoneal carcinomatosis not exclu ded. IMPRESSION: 1. Mild to moderate LEFT pleural effusion with compressive atelectasis LEFT lower lobe. Trace RIGHT pleural fluid. 2. Surgical drain in place in the pelvis. Peripherally enhancing pelvic fluid collection compatible with infection. 3. Atrophic uterus. 4. Free air in the upper abdomen likely due to recent surgery. Recommend interval follow-up. 5. Slight cirrhotic configuration to the liver. 6. Areas of patchy decreased enhancement in the spleen suspicious for ischemia or infarct appears ne w from previous. 7. Prominent submucosal enhancement involving the RIGHT colon and cecum suspicious for colitis. 8. Areas of slightly nodular induration in the mesentery more prominent in the RIGHT upper quadrant may be due to edema versus peritoneal carcinomatosis. 9. Diffuse body wall anasarca. Message LEFT for Thao Chaves MD at 08/30/2023 10:58 AM.
[2023-08-30] MEDS: iohexol 350 mg/mL 500 mL Btl (per mL) IV (10:11)
[2023-08-30] MEDS: sodium chloride 0.9% 1,000 ML 999 ML IV (10:23)
[2023-08-30] MEDS: heparin 5,000 unit/mL INJ 1 mL 5000 UNIT SUBCUT (10:24)
[2023-08-30] MEDS: albumin 12.5 GM/50 ML VIAL IV (10:35)
[2023-08-30 10:56] LABS: Cyto Order Verification Order Verified
[2023-08-30] MEDS: vancomycin 1,250 MG/250 ML PIGGYBACK 250 MG IV (11:38)
[2023-08-30] MEDS: piperacillin-tazobactam 3.375 GM in sodium chloride 0.9% (plus) 50 ML IV (11:41)
[2023-08-30 11:47] VITALS: BP 102/65; PULSE 98; RESP 16; TEMP 36.3; O2SAT 92
[2023-08-30] MEDS: sodium chloride 0.9% 1,000 ML 100 ML IV (12:05)
--- NOTE | 2023-08-30 12:40 | PM.TDS ---
Transfer Summary Providers Date of Admission: 08/24/23 12:14 Date of Discharge/Transfer: 08/30/23 Attending Provider at Admission: Sridhar Pollard MD Attending Provider at Transfer: Thao Chaves MD Transfer Plans: Anticipated date of transfer: 08/30/23. Diagnoses at Discharge Discharge Diagnosis (1) Pelvic mass in female: Status: Acute (2) Malignant ascites: Status: Acute (3) Spontaneous bacterial peritonitis: Status: Acute (4) UTI (urinary tract infection): Status: Acute Qualifiers: Urinary tract infection type: acute cystitis (5) Weakness: Status: Acute (6) Anemia: Status: Acute Qualifiers: Anemia type: due to chronic kidney disease Reason for Visit Reason for Visit Weakness Hospital Course Hospital Course Ms. Thompson is a 78o woman who has not seen a Physician in >30yrs who presented to the ED on 08/24/2023 with 1 week of bilateral pedal edema, abdominal pain and distention, 3 to 4 days of severe diarrhea, and progressive generalized weakness resulting in a known fall without head trauma. In the ED, her UA was concerning for UTI. CT head was done that was negative for any acute intracranial abnormality. Her CXR showed bilateral lower lobe atelectasis. CT abdomen and pelvis was done that showed massive abdominal and pelvic ascites. On admission, an ultrasound-guided paracentesis was done that showed 5.5 L of clear yellow ascites. Initial fluid growing Bacteroides and Proteus resistant to tetracyclines but sensitive to everything else. Thereafter for comfort purposes a pelvic drain was placed since patient was very bloated and initially she was told that she may be able to go home with hospice if she is not interested in further procedures however patient has infected fluid and we so far do not have a working diagnosis in regards to this mobile structure that was found in the pelvis. Patient is having abdominal pain. Chest abdomen CT pelvis repeated and there is no sign of perforation. The pelvic drain has been draining foul-smelling liquid which has been sent for culture and cytology. Results are pending at this time. Antibiotic coverage has been escalated to vancomycin and Zosyn. Patient will need gynecological oncology, infectious disease, IR which we do not have at our hospital. For further management and diagnostic workup she will be transferred to [facility]. Case was discussed with Dr. Hill who graciously accepted the patient for transfer. We will be sending her discs of imaging along with her when she is transferred. She was given a unit of albumin today and IV fluids. Vitals are stable at this time 0.2/65, pulse 98, straight 16, temperature 97.4, saturating 92% on room air. Discussed all the above with family and they are agreeable to transfer at this time. Physical Exam Narrative: Patient seen lying in bed with family at bedside. Alert oriented x 3 Heart: Normal S1-S2 without murmurs clicks gallops or rubs Lungs: Clear to auscultation without wheezes rales or rhonchi Abdomen: Soft, mildly tender to palpation throughout bilateral lower quadrants. No apparent guarding present. No stigmata of liver disease noted Extremities pedal edema Able to move all 4 extremities Urinary Catheter Management: Newman: Cath Placed During This Visit: yes, but has since been removed by the nurse Reason for Continuing Indwelling Catheter: Decision to DC Catheter Urinary Catheter Date of Insertion: 08/24/23 Urinary Catheter Time of Insertion: 12:02 Date Urinary Catheter Removed: 08/29/23 Time Urinary Catheter Discontinued: 15:21 TS Data Studies Completed and Pending Pending at discharge Category Date Time Status Anaerobic Culture Routine Lab 08/24/23 14:14 Results Anaerobic Culture Routine Lab 08/29/23 15:47 Results Blood Culture Stat Lab 08/28/23 15:32 Results Blood Cultures ([facility]) Routine Lab 08/30/23 10:58 Received Blood Cultures ([facility]) Routine Lab 08/30/23 11:05 Received Body Fluid Culture & GS Routine Lab 08/24/23 14:14 Results Body Fluid Culture & GS Routine Lab 08/29/23 15:47 Results Clostridium Difficile PCR Routine Lab 08/24/23 07:24 Ordered Fecal Occult Blood [Immunochemical Fecal OCB] Routine Lab 08/24/23 11:49 Uncollected Mycobacteria, Culture w/Fluor Routine Lab 08/24/23 14:14 Received OVA and Parasites, Conc and PE Routine Lab 08/24/23 07:24 Ordered Salmonella / Shigella / Campy Routine Lab 08/24/23 07:24 Ordered Cytology [PTH] Routine Pth 08/30/23 09:47 Received Completed Studies During Hospitalization Category Date Time Status CT abdomen pelvis w con* [id number] Stat Cat Scan 08/24/23 07:[address] chest abdomen pelvis [CT chest abdpel w/*[id number] Cat Scan 08/30/23 09:40 Completed ] Stat CT head wo con* [id number] Stat Cat Scan 08/24/23 10:[address] head wo con* [id number] Stat Cat Scan 08/28/23 14:06 Completed XR KUB portable [id number] Stat Exams 08/28/23 08:22 Completed XR chest 1V portable [id number] Routine Exams 08/30/23 08:36 Completed XR chest 1V portable [id number] Stat Exams 08/24/23 07:23 Completed Cytology [PTH] Routine Pth 08/24/23 14:14 [place] [id number] Routine Ultrasound 08/26/23 21:37 Completed CV. echo complete* [id number] Routine Ultrasound 08/24/23 13:21 Completed US abdomen complete* [id number] Routine Ultrasound 08/26/23 21:37 Completed US paracentesis abdomen [[place] paracentesis abd w [id number]] Ultrasound 08/24/23 12:07 Completed Routine US transvaginal [id number] Routine Ultrasound 08/26/23 15:51 Completed Laboratory Last Values WBC 18.05 10^3/uL (3.29-11.43) H 08/30/23 07:15 Corrected WBC Cancelled 08/30/23 05:25 RBC 4.58 10^6/uL (3.85-5.65) 08/30/23 07:15 Hgb 11.80 g/dL (11.27-16.99) 08/30/23 07:15 Hct 37.4 % (36-47) 08/30/23 07:15 MCV 81.7 fl (85-98) L 08/30/23 07:15 MCH 25.8 pg (27-33) L 08/30/23 07:15 MCHC 31.6 g/dL (30-55) 08/30/23 07:15 RDW 18.6 % (12.1-15.1) H 08/30/23 07:15 Plt Count 416 10^3/cmm (157-399) H D 08/30/23 07:15 MPV 8.9 fL (7.4-10.4) 08/30/23 07:15 Gran % Cancelled 08/30/23 05:25 Neut % (Auto) 89.9 % 08/30/23 07:15 Lymph % (Auto) 5.4 % 08/30/23 07:15 Lander % (Auto) 3.4 % 08/30/23 07:15 Eos % (Auto) 0.1 % 08/30/23 07:15 Baso % (Auto) 0.6 % 08/30/23 07:15 Neut # (Auto) 16.25 10^3/uL (1.8-7.7) H 08/30/23 07:15 Lymph # (Auto) 1.0 10^3/uL (0.8-4.8) 08/30/23 07:15 Lander # (Auto) 0.6 10^3/uL (0.2-0.9) 08/30/23 07:15 Eos # (Auto) 0.0 10^3/uL (0.0-0.8) 08/30/23 07:15 Baso # (Auto) 0.1 10^3/uL (0.0-0.1) 08/30/23 07:15 Absolute Gran (auto) Cancelled 08/30/23 05:25 Nucleated RBC % (auto) 0 % 08/30/23 07:15 Total Counted 100 (0-100) 08/24/23 07:36 Atypical Lymphs % 4.0 % (0-5) 08/24/23 07:36 Absolute Neutrophils 5.0 10^3/cmm (1.4-6.5) 08/24/23 07:36 Segmented Neutrophils 72 % 08/24/23 07:36 Abs Segm Neuts (Man) 4.1 10/cmm (1.6-7.1) 08/24/23 07:36 Band Neutrophils 15.0 % 08/24/23 07:36 Abs Band Neuts (Man) 0.9 10^3/cmm (0.0-1.2) 08/24/23 07:36 Absolute Lymphocytes 0.6 10^3/cmm (1.2-3.4) L 08/24/23 07:36 Lymphocytes (Manual) 7 % 08/24/23 07:36 Monocytes (Manual) 2.0 % 08/24/23 07:36 Absolute Monocytes 0.1 10^3/cmm (0.1-0.6) 08/24/23 07:36 Eosinophils (Manual) 0 % 08/24/23 07:36 Absolute Eosinophils 0.0 10^3/cmm (0.0-0.7) 08/24/23 07:36 Basophils (Manual) 0.0 % 08/24/23 07:36 Absolute Basophils 0.0 10^3/cmm (0.0-0.2) 08/24/23 07:36 Metamyelocytes 0.0 % 08/24/23 07:36 Myelocytes 0.0 % 08/24/23 07:36 Nucleated RBCs 0.0 /100WBC (0-1) 08/24/23 07:36 Nucleated RBCs # 0.0 /100WBC 08/30/23 07:15 Differential Comment Yes 08/29/23 15:47 Platelet Estimate Normal (Normal) 08/24/23 07:36 Anisocytosis Trace 08/24/23 07:36 PT 14.40 SECONDS (12.1-14.9) 08/27/23 05:28 INR 1.09 (0.8-1.2) 08/27/23 05:28 APTT 27.9 SECONDS (23.9-36.7) 08/27/23 05:28 Sodium 137 mmol/L (136-145) 08/30/23 05:25 Potassium 4.8 mmol/L (3.5-5.1) 08/30/23 05:25 Chloride 106 mmol/L (98-107) 08/30/23 05:25 Carbon Dioxide 20 mmol/L (22-29) L 08/30/23 05:25 Anion Gap 15.8 (5-19) 08/30/23 05:25 BUN 25 mg/dL (8-23) H 08/30/23 05:25 Creatinine 0.7 mg/dL (0.5-0.9) 08/30/23 05:25 GFR Calculation Not Reportable 08/30/23 05:25 Glucose 117 mg/dL (65-115) H 08/30/23 05:25 Calculated Osmolality 289 mOsm/kg (285-295) 08/30/23 05:25 Lactic Acid 2.0 mmol/L (0.5-2.2) 08/30/23 10:58 Calcium 7.9 mg/dL (8.5-10.5) L 08/30/23 05:25 Phosphorus 2.9 mg/dL (2.5-4.5) 08/29/23 05:53 Magnesium 2.5 mg/dL (1.7-2.3) H 08/29/23 05:53 Iron 13 ug/dL (37-145) L 08/24/23 07:36 TIBC 102 mcg/dl 08/24/23 07:36 % Saturation 12.7 % (20-50) L 08/24/23 07:36 Unsat Iron Binding 89 ug/dL (112-347) L 08/24/23 07:36 Ferritin 469 ng/mL (15-150) H 08/24/23 07:36 Total Bilirubin 0.2 mg/dL (0.15-1.2) 08/27/23 05:28 Direct Bilirubin 0.20 mg/dL (0.00-0.30) 08/27/23 05:28 AST 10 U/L (0-32) 08/27/23 05:28 ALT 6 U/L (0-33) 08/27/23 05:28 Alkaline Phosphatase 72 U/L (35-105) 08/27/23 05:28 Ammonia 35 umol/L (11-51) 08/28/23 15:29 Troponin T Baseline 15 ng/L (0-10) H 08/24/23 07:36 Troponin T 120 Minute 13.18 ng/L (0-10) H 08/24/23 09:43 Delta Troponin T -1.82 ABS# (0-10) L 08/24/23 09:43 Troponin T Hi Sens 6Hr 13.25 ng/L (0-10) H 08/24/23 14:57 Troponin T Hi Sens 6Hr Delta -1.75 ng/L (0-12) L 08/24/23 14:57 NT-Pro-B Natriuret Pep 1121 pg/mL (0-450) H 08/24/23 07:36 Total Protein 5.2 g/dL (6.6-8.7) L 08/27/23 05:28 Albumin 2.1 g/dL (3.5-5.2) L 08/27/23 05:28 Globulin 3.1 g/dL (1.3-4.6) 08/27/23 05:28 Triglycerides 188 mg/dL (0-150) H 08/27/23 05:28 Cholesterol 81 mg/dL (0-200) 08/27/23 05:28 LDL Cholesterol, Calc 28 mg/dL (50-129) L 08/27/23 05:28 HDL Cholesterol 15 mg/dL (60-100) L 08/27/23 05:28 LDL/HDL Ratio 1.87 RATIO (0.00-3.22) 08/27/23 05:28 Cholesterol/HDL Ratio 5.40 mg/dL (0.0-4.40) H 08/27/23 05:28 Lipase 8 U/L (13-60) L 08/24/23 07:36 Tumor Marker AFP 1.8 ng/mL (0-8.3) 08/24/23 07:36 Carcinoembryonic Ag 0.8 ng/mL (0.0-4.7) 08/24/23 07:36 CA 19-9 Antigen 8.49 U/mL (0-35) 08/24/23 07:36 CA 125 Antigen 332.0 U/mL (0-35) H 08/24/23 07:36 Vitamin B12 711 pg/mL (232-1245) 08/28/23 15:29 Folate 2.6 ng/mL (4.8-37.3) L 08/24/23 07:36 TSH 1.22 uIU/mL (0.27-4.20) 08/28/23 15:29 Urine Color Yellow (Yellow) 08/24/23 11:42 Urine Appearance Hazy (CLEAR) A 08/24/23 11:42 Urine pH 5 (5-7) 08/24/23 11:42 Ur Specific [place] 1.015 (1.005-1.030) 08/24/23 11:42 Urine Protein 1+ (Negative) H 08/24/23 11:42 Urine Glucose (UA) Norm (Normal) 08/24/23 11:42 Urine Ketones 1+ (Negative) H 08/24/23 11:42 Urine Blood Neg (Negative) 08/24/23 11:42 Urine Nitrate Positive (Negative) H 08/24/23 11:42 Urine Bilirubin 1+ (Negative) H 08/24/23 11:42 Urine Urobilinogen 1 mg/dL (Negative) H 08/24/23 11:42 Ur Leukocyte Esterase Trace (Negative) H 08/24/23 11:42 Urine RBC 0-4 /hpf (0-2) H 08/24/23 11:42 Urine WBC 25-40 /hpf (0-5) H 08/24/23 11:42 Ur Squamous Epith Cells 0-4 /hpf (0-5) H 08/24/23 11:42 Amorphous Sediment Not Reportable 08/24/23 11:42 Urine Bacteria 2+ /hpf (NONE) H 08/24/23 11:42 Urine Mucus 2+ /hpf 08/24/23 11:42 Ur Oval Fat Bodies Y /hpf 08/24/23 11:42 Fluid Color Other 08/29/23 15:47 Fluid Appearance Cloudy 08/29/23 15:47 Fluid Specific Grav 1.010 08/24/23 14:14 Fluid pH 8.0 08/24/23 14:14 Fluid WBC [id number] /uL 08/29/23 15:47 Fluid RBC 364.000 10^3/uL 08/29/23 15:47 Fld Polynuclear WBCs # 131.322 08/29/23 15:47 Fld Polynuclear WBCs % 88.800 % 08/29/23 15:47 Fl Mononucl WBCs #(Auto) 16.651 08/29/23 15:47 Fl Mononuclear % Auto 11.200 % 08/29/23 15:47 Fld Crystal Laterality Ascites right abdomi 08/29/23 15:47 Fluid Glucose 19.0 mg/dL 08/24/23 14:14 Fluid Total Protein 0.9 g/dL 08/29/23 15:47 Fluid Albumin 0.4 g/dL 08/29/23 15:47 Fluid LDH 450 U/L 08/24/23 14:14 Fluid Amylase 12 U/L 08/24/23 14:14 Fluid Alk Phosphatase 132 IU/L 08/24/23 14:14 Fluid Cholesterol 37 mg/dL (0-200) 08/24/23 14:14 Fluid Triglycerides 29 mg/dL (0-150) 08/24/23 14:14 Fluid Uric Acid 6 mg/dL 08/24/23 14:14 Hepatitis A IgM Ab Non-reactive (Nonreactive) 08/24/23 07:36 Hep Bs Antigen Non-reactive (Nonreactive) 08/24/23 07:36 Hep B Core IgM Ab Non-reactive (Nonreactive) 08/24/23 07:36 Hepatitis C Antibody Non-reactive (Nonreactive) 08/24/23 07:36 Radiology Impressions Transvaginal US 08/26/23 15:51 IMPRESSION: Limited evaluation of the uterus and ovaries due to overlying bowel gas, and ascites. Large 9.1 x 5.8 x 13.8 centimeter mobile structure. Abdomen Ultrasound 08/26/23 21:37 IMPRESSION: 1. Hepatomegaly with hepatic steatosis and possible cirrhosis. There is [id number] ascites. 2. Gallbladder sludge without definite stone. No significant gallbladder wall thickening. Venous Duplex 08/26/23 21:37 IMPRESSION: No evidence of deep venous thrombosis. Chest X-Ray 08/30/23 08:36 IMPRESSION: 1. Increased left lower lung pneumonitis and atelectasis. 2. Unchanged right lower lung atelectasis and pneumonitis. 3. Increased small bilateral pleural effusions. Recent Clincial Data Last Vital Signs Temp 97.4 F L 08/30/23 11:47 Pulse 98 08/30/23 11:47 Resp 16 08/30/23 11:47 BP 102/65 08/30/23 11:47 Pulse Ox 92 08/30/23 11:47 O2 Del Method Room Air 08/30/23 11:47 O2 Flow Rate 2 08/28/23 08:52 Vital Signs Temp Pulse Resp BP Pulse Ox O2 Del Method 08/30/23 11:47 97.4 F L 98 16 102/65 92 Room Air 08/30/23 08:24 22 H 08/30/23 07:21 97.8 F 122 H 16 93/68 91 Room Air 08/30/23 04:24 98.3 F 119 H 16 126/73 93 Room Air Intake & Output/Weight 08/28/23 08/29/23 08/30/23 08/31/23 06:59 06:59 06:59 06:59 Intake Total 50 / 50 1770 / 1770 2490 / 2490 2049 Output Total 1200 / 1200 470 / 470 870 / 870 Balance -1150 / -1150 1300 / 1300 1620 / 1620 2049 Weight 70.108 kg 71.809 kg 72.773 kg Vitals Last Vital Signs Temp 97.4 F L 08/30/23 11:47 Pulse 98 08/30/23 11:47 Resp 16 08/30/23 11:47 BP 102/65 08/30/23 11:47 Pulse Ox 92 08/30/23 11:47 O2 Del Method Room Air 08/30/23 11:47 O2 Flow Rate 2 08/28/23 08:52 TS Medications Medications Acetaminophen (Acetaminophen 325 Mg Tablet) 650 mg PO Q6H PRN PRN Reason: Mild/Mod Pain Or Temp >/= 101 Folic Acid (Folic Acid 1 Mg Tablet) 1 mg PO DAILY [facility] Last Admin: 08/30/23 08:30 Dose: Not Given Heparin Sodium (Porcine) (Heparin 5,000 Unit/Ml Inj 1 Ml) 5,000 unit SUBCUT Q12H [facility] Last Admin: 08/30/23 10:24 Dose: 5,000 unit Ceftriaxone Sodium 2,000 mg/ (Sodium Chloride) 50 mls @ 100 mls/hr IV Q24H [facility]; Protocol Last Infusion: 08/29/23 19:49 Dose: Infused Sodium Chloride (Sodium Chloride 0.9%) 1,000 mls @ 100 mls/hr IV .Q10H [facility] Last Admin: 08/30/23 12:05 Dose: 100 mls/hr Piperacillin Sod/Tazobactam (Sod 3.375 gm/ Sodium Chloride) 50 mls @ 12.5 mls/hr IV Q8H [facility] Last Admin: 08/30/23 11:41 Dose: 12.5 mls/hr Vancomycin/PEG/NADA/Lysine/Water (Vancocin) 1,250 mg in 250 mls @ 250 mls/hr IV Q18H [facility] Last Admin: 08/30/23 11:38 Dose: 250 mls/hr Morphine Sulfate (Morphine Ir 15 Mg Tablet) 15 mg PO Q4H PRN PRN Reason: SEVERE PAIN Last Admin: 08/29/23 10:42 Dose: 15 mg Ondansetron HCl (Ondansetron 2 Mg/Ml Sdv 2 Ml) 4 mg IVP Q6H PRN PRN Reason: vomiting, or N/V if npo Last Admin: 08/30/23 08:27 Dose: 4 mg Pantoprazole Sodium (Pantoprazole Dr 40 Mg Tablet) 40 mg PO DAILY [facility] Last Admin: 08/30/23 08:31 Dose: Not Given Simethicone (Simethicone 80 Mg Chew) 80 mg PO QID [facility] Last Admin: 08/30/23 12:04 Dose: Not Given Zolpidem Tartrate (Zolpidem 5 Mg Tablet) 5 mg PO BEDTIME PRN PRN Reason: INSOMNIA Last Admin: 08/29/23 21:19 Dose: 5 mg Discontinued Medications Albuterol Sulfate (Albuterol 2.5 Mg/3 Ml Neb) 2.5 mg INHALATION ONCE PRN PRN Reason: WHEEZING Bupivacaine HCl (Bupivacaine 0.25% Inj 10 Ml) Confirm Administered Dose 10 ml .ROUTE .Orexo-MED ONE Stop: 08/28/23 06:57 Bupivacaine HCl (Bupivacaine 0.25% Inj 10 Ml) 10 ml INJECTION ONCE ONE Stop: 08/28/23 07:45 Last Admin: 08/28/23 07:37 Dose: 10 ml Cefazolin Sodium (Cefazolin 1,000 Mg Sdv) Confirm Administered Dose 1,000 mg .ROUTE .Orexo-[employer]Plug ONE Stop: 08/28/23 06:59 Cefazolin Sodium (Cefazolin 1,000 Mg Sdv) 1,000 mg IVP [employer] ONE; Protocol Stop: 08/28/23 07:44 Last Admin: 08/28/23 07:30 Dose: 1,000 mg Dexamethasone (Dexamethasone 4 Mg/Ml Inj) Confirm Administered Dose 8 mg .ROUTE .[employer] ONE Stop: 08/28/23 06:57 Diphenhydramine HCl (Diphenhydramine 50 Mg/Ml Sdv 1ml) 12.5 mg IVP ONCE PRN PRN Reason: Postop N/V Diphenhydramine HCl (Diphenhydramine 50 Mg/Ml Sdv 1ml) 12.5 mg IVP ONCE PRN PRN Reason: PONV Famotidine (Famotidine 20 Mg/2 Ml Inj) 20 mg IVP ONCE PRN PRN Reason: HEARTBURN Fentanyl (Fentanyl 50 Mcg/Ml Inj 2ml) 50 mcg IVP ONCE PRN PRN Reason: Preop Pain Fentanyl (Fentanyl 50 Mcg/Ml Inj 2ml) Confirm Administered Dose 100 mcg .ROUTE .[employer] ONE Stop: 08/28/23 06:56 Furosemide (Furosemide 10 Mg/Ml Sdv 4ml) 40 mg IVP ONCE ONE Stop: 08/27/23 10:59 Last Admin: 08/27/23 11:17 Dose: 40 mg Hydromorphone HCl (Hydromorphone 1 Mg/Ml Inj 1 Ml) 1 mg IVP Q4H PRN PRN Reason: PAIN Last Admin: 08/27/23 11:25 Dose: 1 mg Hydromorphone HCl (Hydromorphone 1 Mg/Ml Inj 1 Ml) 0.5 mg IVP Q4H PRN PRN Reason: PAIN Last Admin: 08/30/23 08:24 Dose: 0.5 mg Hydromorphone HCl (Hydromorphone 1 Mg/Ml Inj 1 Ml) 0.5 mg IVP ONCE PRN PRN Reason: For preop pain/anxiety Hydromorphone HCl (Hydromorphone 1 Mg/Ml Inj 1 Ml) 0.5 mg IVP ONCE PRN PRN Reason: Phase II postop pain Sodium Chloride (Sodium Chloride 0.9%) 1,000 mls @ 999 mls/hr IV .Q1H1M ONE Stop: 08/24/23 08:23 Last Infusion: 08/24/23 12:07 Dose: Infused Sodium Chloride (Sodium Chloride 0.9%) 1,000 mls @ 30 mls/hr IV .Q24H FUAD Stop: 08/29/23 06:59 Last Admin: 08/28/23 17:28 Dose: Not Given Lidocaine HCl (Xylocaine) Confirm Administered Dose 4 mls @ as directed .ROUTE .STK-MED ONE Stop: 08/28/23 06:56 Lactated Ringer's (Lactated Ringers) 1,000 mls @ 100 mls/hr IV .Q10H [facility] Last Infusion: 08/30/23 07:20 Dose: Infused Piperacillin Sod/Tazobactam (Sod / Sodium Chloride) 50 mls @ 0 mls/hr [id number] CONT FUAD; Protocol Vancomycin HCl / Sodium (Chloride) 250 mls @ 0 mls/hr [id number] PROTOCOL FUAD; Protocol Sodium Chloride (Sodium Chloride 0.9%) 1,000 mls @ 999 mls/hr IV .Q1H1M ONE Stop: 08/30/23 10:53 Last Infusion: 08/30/23 11:24 Dose: Infused Albumin Human (Albumin) 12.5 gm in 50 mls @ 60 mls/hr IV ONCE ONE Stop: 08/30/23 10:52 Last Infusion: 08/30/23 11:25 Dose: Infused Iohexol (Iohexol 350 Mg/Ml 500 Ml Btl (Per Ml)) 0 ml IV ONCE ONE Stop: 08/24/23 08:46 Iohexol (Iohexol 350 Mg/Ml 500 Ml Btl (Per Ml)) 0 ml IV ONCE ONE Stop: 08/24/23 08:48 Last Admin: 08/24/23 08:47 Dose: 100 ml Iohexol (Iohexol 350 Mg/Ml 500 Ml Btl (Per Ml)) 0 ml IV ONCE ONE Stop: 08/30/23 10:12 Last Admin: 08/30/23 10:11 Dose: 100 ml Ipratropium Napoleon (Ipratropium 0.5 Mg/2.5 Ml Neb) 0.5 mg INHALATION ONCE PRN PRN Reason: WHEEZING Midazolam HCl (Midazolam 1 Mg/Ml Inj 2 Ml) 2 mg IVP ONCE PRN PRN Reason: Preop Anxiety Ondansetron HCl (Ondansetron 2 Mg/Ml Sdv 2 Ml) 4 mg IVP ONCE ONE Stop: 08/24/23 07:24 Last Admin: 08/24/23 07:52 Dose: Not Given Ondansetron HCl (Ondansetron 2 Mg/Ml Sdv 2 Ml) 4 mg IVP ONCE PRN PRN Reason: NAUSEA AND VOMITING Ondansetron HCl (Ondansetron 2 Mg/Ml Sdv 2 Ml) Confirm Administered Dose 4 mg .ROUTE .STK-MED ONE Stop: 08/28/23 06:56 Potassium Chloride (Potassium Chloride Er 20 Meq Tablet) 40 meq PO ONCE ONE Stop: 08/24/23 13:22 Last Admin: 08/24/23 16:17 Dose: Not Given Potassium Chloride (Potassium Chloride Er 20 Meq Tablet) 40 meq PO ONCE ONE Stop: 08/24/23 15:48 Last Admin: 08/24/23 17:40 Dose: 40 meq Propofol (Propofol 10 Mg/Ml Sdv 20 Ml) Confirm Administered Dose 200 mg .ROUTE .STK-MED ONE Stop: 08/28/23 06:56 Rocuronium [place] (Rocuronium 10 Mg/Ml Inj 5ml) Confirm Administered Dose 50 mg .ROUTE .STK-MED ONE Stop: 08/28/23 06:56 Scopolamine (Scopolamine 1.5 Patch) 1 patch TRANSDERMA ONCE PRN PRN Reason: Nausea/ Vomiting Prophylaxis Zolpidem Tartrate (Zolpidem 5 Mg Tablet) 5 mg PO ONCE ONE Stop: 08/24/23 20:33 Last Admin: 08/24/23 21:05 Dose: 5 mg Allergies No Known Allergies Allergy (Verified 08/24/23 07:29) Home Medications loperamide 2 mg capsule 4 mg PO .ONE TIME DOSE 08/24/23 [History Confirmed 08/24/23] Discharge Plan Discharge Patient Disposition: Home Health Service Condition: Stable Prescriptions: No Action Imodium 2 mg Capsule 4 mg PO .ONE TIME DOSE Referrals: Jono Sanderson MD [Physician] - 09/04/23 1:30 pm (You will follow up with Dr Sanderson on 09/04. He will follow your Home Health until you have been seen by Dr Yoo on 09/17/23. Then Dr Yoo will be able to follow the care. ) Chin Yoo MD [Physician] - 09/17/23 9:00 am Patient Instructions: Opioid Safety Transfer Attestations Time Spent in Transfer Care: greater than 30 min Quality Metrics Clinical Quality Measures [ No reported AMI, CVA or VTE this stay] Coding Level of Care Code Acute Code for Chg Fwd Diagnoses Pelvic mass in female R19.00 Malignant ascites R18.0 Spontaneous bacterial peritonitis K65.2 UTI (urinary tract infection) N39.0 Urinary tract infection type: acute cystitis Weakness R53.1 Anemia D64.9 Anemia type: due to chronic kidney disease Time Spent (min) 90
--- NOTE | 2023-08-30 13:07 | PC.OT ---
HOLD OT TREATMENT TODAY DUE TO SCHEDULED TRANSFER
[2023-08-30 15:38] VITALS: BP 97/55; PULSE 94; RESP 16; TEMP 36.7; O2SAT 93
--- NOTE | 2023-08-30 15:51 | PC.NURSE ---
Report called to KASSANDRA Chester at [facility]
[2023-08-30 16:22] VITALS: BP 97/55; PULSE 94; RESP 16; TEMP 36.7; O2SAT 93
== END 2023-08-30 16:24 | disposition short-term general hospital (02) | DRG 356 ==
LOC: ER 12:44 → MEDSURG 13:11
PROVIDERS: Internal Medicine; Surgery Surgical Critical Care; Admitting Provider Internal Medicine; Emergency Provider Emergency Medicine; Visit Provider Internal Medicine
PROC: 0WHG43Z Insertion of Infusion Device into Peritoneal Cavity, Percutaneous Endoscopic Approach (ICD-10-PCS; CPT 49324; principal; 2023-08-28 07:00)
DX: K65.2 Spontaneous bacterial peritonitis (principal); G93.41 Metabolic encephalopathy; N39.0 Urinary tract infection, site not specified; R18.8 Other ascites; Z16.29 Resistance to other single specified antibiotic; J98.11 Atelectasis; E44.0 Moderate protein-calorie malnutrition; B96.4 Proteus (mirabilis) (morganii) as the cause of diseases classified elsewhere; D63.8 Anemia in other chronic diseases classified elsewhere; E88.09 Other disorders of plasma-protein metabolism, not elsewhere classified; E87.6 Hypokalemia; B96.89 Other specified bacterial agents as the cause of diseases classified elsewhere; R19.7 Diarrhea, unspecified; R97.1 Elevated cancer antigen 125 [CA 125]; R19.00 Intra-abdominal and pelvic swelling, mass and lump, unspecified site; Z68.26 Body mass index [BMI] 26.0-26.9, adult
CPT/HCPCS: 36415; 49083; 51702; 70450; 71045; 71260; 74018; 74177; 76700; 76830; 80048; 80053; 80061; 80074; 80076; 80503; 81001; 82042; 82105; 82140; 82150; 82274; 82378; 82465; 82607; 82728; 82746; 82945; 83540; 83550; 83605; 83615; 83630; 83690; 83735; 83880; 83986; 84075; 84100; 84157; 84315; 84443; 84478; 84484; 84560; 85007; 85025; 85610; 85730; 86301; 86304; 87015; 87040; 87070; 87075; 87077; 87086; 87116; 87186; 87205; 87206; 87801; 88112; 88305; 89050; 93005; 93306; 93970; 96372; 97110; 97162; 97167; 97530; 97535; 99285; J0690; J0696; J1100; J1170; J1644; J1940; J2405; J2543; J2704; J3010; J3370; J3490; J7030; J7120; P9047; Q9967

== ENCOUNTER 2023-12-07 10:00 | Oncology outpatient (recurring) (ONCR) | payer MEDICARE, OTHER, SELFPAY ==
[2023-12-05 09:49] LABS: Basophils % 0.3 %; Eosinophils % 0.3 %; Hematocrit 40.4 % (36-47); Lymphocytes # 1.2 10^3/uL (0.8-4.8); Lymphocytes % 15.2 %; Mean Corpuscular HGB Conc 32.2 g/dL (30-55); Mean Corpuscular Volume 87.1 fl (85-98); Mean Platelet Volume 9.6 fL (7.4-10.4); Monocytes # 0.5 10^3/uL (0.2-0.9); Monocytes % 7.1 %; Neutrophils # 5.82 10^3/uL (1.8-7.7); Neutrophils % 76.8 %; Nucleated Red Blood Cells % 0 %; Platelet Count 321 10^3/cmm (157-399); Red Blood Count 4.64 10^6/uL (3.85-5.65); Red Cell Distribution Width 15.2 % (12.1-15.1); White Blood Count 7.57 10^3/uL (3.29-11.43)
[2023-12-05 09:50] LABS: Reticulocyte % 1.5 % (0.5-2.0)
[2023-12-05 09:55] LABS: Erythrocyte Sedimentation Rate 28 mm/hr (0-15)
[2023-12-05 10:11] LABS: Alanine Aminotransferase 6 U/L (0-33); Alkaline Phosphatase 88 U/L (35-105); Anion Gap 21.5 (5-19); Aspartate Amino Transferase 16 U/L (0-32); Blood Urea Nitrogen 40 mg/dL (8-23); C Reactive Protein 21.4 mg/L (0.0-4.9); Calcium 9.2 mg/dL (8.5-10.5); Carbon Dioxide 27 mmol/L (22-29); Chloride 91 mmol/L (98-107); Creatinine Clr Calc Pharmacy 44.0059; Ferritin 249 ng/mL (15-150); Globulin 3.2 g/dL (1.3-4.6); Glucose 95 mg/dL (65-115); Iron 42 ug/dL (37-145); Lactate Dehydrogenase 152 U/L (135-214); Osmolality Calculated 292 mOsm/kg (285-295); Percent Saturation 22.7 % (20-50); Potassium 3.5 mmol/L (3.5-5.1); Sodium 136 mmol/L (136-145); Total Bilirubin 0.4 mg/dL (0.15-1.2); Total Iron Binding Capacity 185 mcg/dl; Total Protein 7.2 g/dL (6.6-8.7); Unsaturated Iron Binding 143 ug/dL (112-347)
[2023-12-05 10:25] LABS: Vitamin B12 604 pg/mL (232-1245)
[2023-12-07] MEDS: ondansetron 2 mg/ML SDV 2 mL 8 MG IVP (09:35)
[2023-12-07] MEDS: sodium chloride 0.9% 1,000 ML 999 ML IV (09:35)
[2023-12-07 10:41] VITALS: BP 110/70; PULSE 88; RESP 16; TEMP 36.3; O2SAT 100
[2023-12-09 04:04] LABS: Methylmalonic Acid 143 nmol/L (87-318)
[2023-12-10 12:09] LABS: Soluble Transferrin Receptor 0.99 mg/L (0.76-1.76)
== END 2023-12-09 23:59 | disposition home or self-care (01) ==
PROVIDERS: PCP Family Medicine; Visit Provider Internal Medicine
DX: C43.9 Malignant melanoma of skin, unspecified (principal); Z53.9 Procedure and treatment not carried out, unspecified reason
CPT/HCPCS: 36415; 80053; 82607; 82728; 82746; 83540; 83550; 83615; 83921; 84238; 85025; 85045; 85651; 86140; 96365; 96375; 99204; 99205; J2405; J7030

== ENCOUNTER 2023-12-13 05:40 | Day surgery (SDC) | payer MEDICARE, OTHER, SELFPAY ==
[2023-12-13] VITALS (8 sets, daily range): BP systolic 108–127; BP diastolic 53–83; PULSE 74–94; RESP 16–18; TEMP 36.1–36.6; O2SAT 93–100; BMI 17.1
--- NOTE | 2023-12-13 05:54 | XR_ITS ---
WS: [id number] Examination: XR chest 1V portable [id number] Reason for Exam: Postop mediport Placement Date: December 13, 2023 Comparison: August 30, 2023 Findings: The heart is normal in size. The mediastinum is not widened. The steph are not enlarged. There is a left Port-A-Cath identified. No pneumothorax is seen. In the interval the left basilar infiltrate and opacity is cleared I see no edema or effusion on today's study there is no new consolidation. Impression: No acute lung process is identified. The left basilar opacity has cleared A Port-A-Cath is in place no pneumothorax is seen..
--- NOTE | 2023-12-13 05:54 | SC_ITS ---
WS: [id number] EXAMINATION: C-arm [place] for CVA [id number] ORDER DATE: 12/13/2023 5:54 AM REASON FOR EXAM: Mediport Placement COMPARISON: None available. FLUOROSCOPY TIME: 2.2 seconds # OF SPOT FILMS: 1 FINDINGS: Single intraoperative image demonstrates a left Port-A-Cath placed via the left subclavian vein. It a ppears well-positioned. IMPRESSION: There is a well-positioned left Port-A-Cath. Please see intraoperative note for full explanation of f indings and the procedure.
[2023-12-13] MEDS: sodium chloride 0.9% 1,000 ML 30 ML IV (06:28)
--- NOTE | 2023-12-13 06:45 | ANES.PREANE2 ---
Pre-Anesthetic Assessment Height/Weight: Height 1.65 m Weight 46.72 kg Temp Pulse Resp BP Pulse Ox O2 Del Method 97 F L 94 16 120/83 99 Room Air 12/13/23 06:10 12/13/23 06:10 12/13/23 06:10 12/13/23 06:10 12/13/23 06:10 12/13/23 06:10 Operation Date: 12/13/23 07:00 Proposed Procedures p Portacath Placement(Not Applicable) - Suraj Bullock DO Familial anesthetic complications: None Was Beta Galo taken within 24 hours: N/A Was Clonidine taken within 24 hours: N/A Last intake: Intake Last Liquid Date 12/12/23 Last Liquid Time 20:30 Last Solid Date 12/12/23 Last Solid Time 20:30 Social No alcohol and No tobacco Exam alert, oriented x 3, clear to auscultation bilaterally and regular rate & rhythm Airway Mallampati: Class II Dentition: chipped Hepatic hx ascites, but hasn't required draining and no recurrence per patient and family since her bowel resection. GI Gastroesophageal Reflux Disease bowel resection Anesthetic Plan ASA status: 3 Anesthesia: General Risk of > 500 ml blood loss (7ml/kg in children): No Medications/Allergies Home Medications Medication Instructions Recorded Confirmed Last Taken Type clonazepam 1 mg tablet 1 mg PO DAILY #30 tabs 11/01/23 12/12/23 12/12/23 Rx furosemide 20 mg tablet (Lasix) 20 mg PO DAILY #60 tabs 12/03/23 12/12/23 12/12/23 Rx omeprazole 20 mg capsule,delayed 20 mg PO DAILY #60 caps 12/03/23 12/12/23 12/12/23 Rx release scopolamine base 1 mg over 3 days 1 patch transdermal Q3D PRN nausea 12/03/23 12/12/23 12/11/23 Rx transdermal patch and vomiting #10 ea cobimetinib 20 mg tablet 60 mg (3 x 20 mg) PO .QD #63 tabs 12/05/23 12/12/23 12/12/23 Rx vemurafenib 240 mg tablet 960 mg (4 x 240 mg) PO Q12H 30 12/05/23 12/12/23 12/12/23 Rx days #240 tabs ondansetron 8 mg disintegrating 8 mg PO Q8H PRN nausea and 12/06/23 12/12/23 Unknown Rx tablet vomiting #30 tabs prochlorperazine maleate 5 mg 5 mg PO .[id number] PRN nausea and 12/06/23 12/12/23 Unknown Rx tablet (Compazine) vomiting #30 tabs lorazepam 0.5 mg tablet (Ativan) 0.25 mg (1/2 x 0.5 mg) PO DAILY 12/07/23 12/12/23 Unknown Rx PRN anxiety #4 tabs Allergies Allergy/AdvReac Type Severity Reaction Status Date / Time No Known Allergies Allergy Verified 12/13/23 06:11 Current Medications Generic Name Dose Route Start Last Admin Trade Name Freq PRN Reason Stop Dose Admin Sodium Chloride 1,000 mls @ 30 mls/hr 12/13/23 06:00 12/13/23 06:28 Sodium Chloride 0.9% IV 12/14/23 05:59 30 mls/hr .Q24H FUAD Administration PFSH Anesthesia Medical History Protein calorie malnutrition Metastatic malignant melanoma Insomnia Pedal edema GERD (gastroesophageal reflux disease) Urinary incontinence Cirrhosis Malignant melanoma Cancer of large bowel History of pneumonia Ileostomy present Malignant ascites Pelvic mass in female Spontaneous bacterial peritonitis Surgical History History of colon resection Family History Mother Carotid artery disease Father No problems noted. Social History Smoking and tobacco/nicotine status: never used tobacco/nicotine Second hand smoke exposure: No Alcohol intake: never Substance/Drug Use: never Lives independently: Yes service: No Current occupational exposures/hazards: No Current gender identity: Female Data Anesthesia Cardiac Studies: Echocardiogram 08/24/23
--- NOTE | 2023-12-13 06:47 | W.PM.OPSUD ---
Surgery/Procedure H&P Update DATE OF PROCEDURE: December 13, 2023 DATE H&P PERFORMED: 12/07/23 H&P UPDATE INFORMATION: I have reviewed H&P completed within last 30 days, I have examined patient prior to procedure and No changes to prior documentation PLANNED PROCEDURE: Operation Date: 12/13/23 07:00 Proposed Procedures p Portacath Placement(Not Applicable) - Suraj Bullock DO
[2023-12-13] MEDS: ceFAZolin 2,000 MG in sodium chloride 0.9% (plus) 50 ML 100 MG IV (06:57)
[2023-12-13] MEDS: heparin, porcine 1,000 unit/mL INJ 10 mL 10000 UNIT IRRIGATION (07:18)
[2023-12-13] MEDS: lidocaine-epi 2% PF 1:200,000 20 mL SDV XX (07:20)
--- NOTE | 2023-12-13 07:26 | PM.OP ---
Operative Report Date of procedure: December 13, 2023 Pre-op diagnosis: Metastatic malignant melanoma Post-op diagnosis: same Procedure done: Mediport placement Intraoperative interpretation of fluoroscopy Implants: PowerPort Specimens removed/disposition: None Surgeon: Suraj Bullock DO Anesthesia: MAC and Local Estimated blood loss (mL): 5 Complications: None apparent Brief History: This very pleasant 78-year-old female presented to my office with a diagnosis of metastatic malignant melanoma. Oncology requested Mediport placement for chemotherapy access. The risk and benefits were explained and documented. Procedure: They put another order I will do right now things the patient was taken to the operating room and placed supine on the operating room table. All bony prominences were padded. She was given IV sedation and monitored throughout the case by the anesthesia personnel. SCDs were placed and turned on. The arms were tucked to the side. Patient received Ancef 2 g preoperatively IV. The bilateral chest wall was prepped and draped in usual sterile fashion using chlorhexidine base prep. Sterile drapes were applied. We did procedure pause prior to beginning. An 18 gauge needle was placed in the left subclavian vein. Dark, nonpulsatile blood was aspirated. A guidewire was placed through the needle centrally toward the atrial/vena caval junction. Fluoroscopy visualized good placement. The needle was removed and the guidewire was clipped to the drape with a hemostat. Further local anesthetic was infiltrated in the soft tissues of the left chest wall and a #15 blade was used to make a horizontal skin incision. A subcutaneous Mediport pocket was created using Bovie cautery, dissecting down through the skin and subcutaneous tissues. Meticulous hemostasis was achieved. The Mediport was sutured in position using 3-0 vicryl suture x2 stitches. A #15 blade was used to make a small skin tiana around the guidewire insertion area. The Mediport tubing was tunneled through the subcutaneous tissues up to the needle insertion location. A dilator with a peel-away sheath was placed over the guidewire and placed centrally. After measuring the Mediport tubing was cut to length so that the tip would end at the atrial/vena caval junction. The inner cannula and the guidewire were removed, leaving the dilator sheath in place. The Mediport was flushed. The tip of the catheter was inserted through the peel-away sheath and the peel-away sheath removed in the standard fashion. The Mediport was accessed with a straight George needle and dark, nonpulsatile blood was aspirated and flushed using heparinized saline to hep-lock the Mediport. Final fluoroscopy visualization showed no kink in the catheter and the tip of the Mediport tubing near the atrial/vena caval junction. There is no obvious pneumothorax Both skin incisions were thoroughly irrigated and suctioned dry. Meticulous hemostasis noted. The dermis was approximated with 3-0 Vicryl in an interrupted fashion. Skin was closed with Dermabond. Patient was awakened from anesthesia and transferred via her cart to the recovery room in stable condition. All needle, sponge, and instrument counts were correct per the operating personnel x2 counts.
--- NOTE | 2023-12-13 08:45 | ANE.PACU2 ---
Inpatient post-anesthesia follow up: Airway intact: Yes Vital signs: Temperature 97 F Pulse Rate 74 Respiratory Rate 16 Blood Pressure 127/66 Pulse Oximetry 100 Oxygen Delivery Me thod Room Air Oxygen Flow Rate Fraction of Inspir ed Oxygen Hydration adequate: Yes Nausea and vomiting: No Pain level: 1 Mental status: Baseline
--- NOTE | 2023-12-13 08:49 | PC.NURSE ---
Pt. had a skin tear at the iv site after i removed the iv and venagard. pt's daughter stated this happens all the time, her skin is just so fragile , and requested tegaderm for wound. tegaderm was placed on wound and pt requested to go ahead and be discharged to home.
== END 2023-12-13 08:44 | disposition home or self-care (01) ==
PROVIDERS: PCP Family Medicine; Visit Provider Surgery
PROC: (CPT 36561; principal; 2023-12-13 07:00)
DX: C43.9 Malignant melanoma of skin, unspecified (principal); K21.9 Gastro-esophageal reflux disease without esophagitis; E46 Unspecified protein-calorie malnutrition; Z68.1 Body mass index [BMI] 19.9 or less, adult
CPT/HCPCS: 36561; 71045; 74019; 77001; 96360; 96375; C1788; J0690; J1100; J1644; J2405; J2704; J7030

== ENCOUNTER 2023-12-14 08:31 | Outpatient (CLI) | payer MEDICARE, OTHER, SELFPAY ==
[2023-12-14] MEDS: iohexol 300 mg/mL 100 mL Btl PO (09:22)
[2023-12-14] MEDS: iohexol 350 mg/mL 500 mL Btl (per mL) IV (09:54)
--- NOTE | 2023-12-14 10:00 | CT_ITS ---
WS: [id number] CT ABDOMEN AND PELVIS WITH CONTRAST HISTORY: nausea and vomiting TECHNIQUE: Imaging performed of the abdomen and pelvis with IV contrast. Single phase imaging of the abdomen. Coronal and sagittal reformats are submitted. All CT scans at [facility] use at [facility] one of these dose optimization techniques: automated exposure control; mA and/or kV adjustment per patient size (includes targeted exams where dose is matched to clinical indication); or iterative re construction. IV CONTRAST: Omnipaque 350; 100 mL IV. Oral contrast: Yes. DLP: 236.40 mGy.cm COMPARISON: Radiograph 12/13/2023, prior CT abdomen and pelvis 08/30/2023. Lower thorax: Lung bases are clear. Heart is normal size. No hiatal hernia. Liver/biliary system: Normal size liver. Mildly cirrhotic configuration. No mass or bile duct dilatat ion. Gallbladder: Contracted. No adjacent inflammation. Pancreas: Normal size pancreas and pancreatic duct. No adjacent inflammation. Spleen: Normal size with granulomata. Adrenal glands: Normal. Right kidney: Normal. Left kidney: Cortical cyst 8 mm. No obstruction. Aorta: Mild atherosclerosis with no aneurysm. Dense calcified plaque at the origin of the celiac axis . Normal enhancement distal to the plaque. Lymphadenopathy: There are several very small mesenteric lymph nodes scattered within the peritoneal cavity which have not been present on the prior study. Free fluid: Very small amount of free fluid and mesenteric edema. GI tract: Status post colectomy. 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 There is an ostomy site RIGHT pelvis. Pr oximal to the ostomy site the distal small bowel is collapsed. There is a high-grade obstruction of t he proximal small bowel with a transition point being in the midline of the pelvis. At the transition point there is an abnormal attenuation within the submucosa. There are multiple low-attenuation nodu les with peripheral enhancement and a few scattered foci of air. There are innumerable nodules. The t ransition site appears to be just distal to the abnormal submucosa. No free air. Abdominal wall: RIGHT lower quadrant ileostomy. Pelvis: Prior colectomy. Small amount of fluid. Bones: No osteolytic bone disease. IMPRESSION: 1. Status post colectomy. 2. RIGHT lower abdomen/pelvis ileostomy site. 3. There is a high-grade small bowel obstruction. The distal small bowel is collapsed. Marked dilata tion of the more proximal small bowel. Transition point appears to be deep within the pelvis. 4. Abnormal attenuation with multiple submucosal low-attenuation masses peripheral enhancement invol ving the small bowel proximal to the stenotic site. Differential includes numerous submucosal abscess es within the small bowel or recurrent metastatic melanoma. There is additional small bowel wall thic kening. 5. There are several, subcentimeter mesenteric nodules which were not definitely present on prior st udies. Suspicious for early metastatic deposits. 6. Small amount of fluid. Notified Dayday Gan MD at 12/14/2023 11:02 AM.
== END 2023-12-14 08:32 | disposition home or self-care (01) ==
LOC: RAD 08:32
PROVIDERS: PCP Family Medicine; Visit Provider Internal Medicine Medical Oncology
DX: K56.609 Unspecified intestinal obstruction, unspecified as to partial versus complete obstruction (principal); K63.89 Other specified diseases of intestine; C43.9 Malignant melanoma of skin, unspecified
CPT/HCPCS: 74177; Q9967

== ENCOUNTER 2024-01-07 09:06 | Oncology outpatient (recurring) (ONCR) | payer MEDICARE, OTHER, SELFPAY ==
--- NOTE | 2023-12-13 15:01 | XR_ITS ---
WS: [id number] Examination: XR abdomen min 2V [id number] Reason for Exam: metastatic malignant melanoma Date: December 13, 2023 Comparison: August 28, 2023 Findings: There is no free air underneath the hemidiaphragms. There are multiple thin air-fluid multiple identified in the left upper to mid abdomen and in the low er mid to left abdomen. A mid lower abdomen/upper pelvis air-fluid level is identified. Otherwise the re is limited bowel gas present. Psoas margins are well seen. There has been a cholecystectomy. A stoma is suspected over the right lo wer quadrant. Scoliosis and degenerative changes of the spine are noted. Significant chronic changes at the symphys is pubis are noted. Impression: There is no free air suspected. There is an unusual bowel gas pattern in the left abdomen, bowel obstruction is of concern. I recomme nd CT of the abdomen/pelvis for further evaluation. I called these findings and recommendations to Dr. Gan at 3:32 p.m. December 13, 2023.
[2023-12-13] MEDS: sodium chloride 0.9% 1,000 ML 999 ML IV (16:05)
[2023-12-13] MEDS: dexamethasone 10 mg/mL INJ 12 MG IVP (16:13)
[2023-12-13] MEDS: ondansetron 2 mg/ML SDV 2 mL 8 MG IVP (16:20)
[2023-12-13 17:04] VITALS: BP 123/69; PULSE 83; RESP 17; TEMP 36.2; O2SAT 99
[2024-01-07 10:41] LABS: Basophils # 0.1 10^3/uL (0.0-0.1); Basophils % 0.8 %; Eosinophils # 0.2 10^3/uL (0.0-0.8); Eosinophils % 1.7 %; Lymphocytes # 3.6 10^3/uL (0.8-4.8); Lymphocytes % 41.6 %; Mean Corpuscular HGB Conc 31.9 g/dL (30-55); Mean Corpuscular Hemoglobin 27.9 pg (27-33); Mean Corpuscular Volume 87.4 fl (85-98); Mean Platelet Volume 9.9 fL (7.4-10.4); Monocytes # 0.3 10^3/uL (0.2-0.9); Monocytes % 3.3 %; Neutrophils # 4.44 10^3/uL (1.8-7.7); Neutrophils % 51.6 %; Nucleated Red Blood Cells % 0 %; Platelet Count 297 10^3/cmm (157-399); Red Blood Count 3.66 10^6/uL (3.85-5.65); Red Cell Distribution Width 17.2 % (12.1-15.1); White Blood Count 8.61 10^3/uL (3.29-11.43)
[2024-01-07 11:16] LABS: Alanine Aminotransferase 26 U/L (0-33); Albumin Level 2.9 g/dL (3.5-5.2); Alkaline Phosphatase 109 U/L (35-105); Aspartate Amino Transferase 29 U/L (0-32); Blood Urea Nitrogen 68 mg/dL (8-23); C Reactive Protein 19.3 mg/L (0.0-4.9); Calcium 8.8 mg/dL (8.5-10.5); Carbon Dioxide 28 mmol/L (22-29); Chloride 102 mmol/L (98-107); Glucose 119 mg/dL (65-115); Magnesium 2.1 mg/dL (1.7-2.3); Osmolality Calculated 309 mOsm/kg (285-295); Phosphorus 3.6 mg/dL (2.5-4.5); Sodium 139 mmol/L (136-145); Total Bilirubin 0.2 mg/dL (0.15-1.2); Total Protein 5.9 g/dL (6.6-8.7); Triglycerides 110 mg/dL (0-150)
[2024-01-07 11:22] LABS: Prealbumin 17.1 mg/dL (20-40)
== END 2024-01-08 23:59 | disposition home or self-care (01) ==
PROVIDERS: Student in an Organized Health Care Education/Training Program; PCP Family Medicine; Visit Provider Internal Medicine
DX: M25.18 Fistula, other specified site (principal); Z53.9 Procedure and treatment not carried out, unspecified reason
CPT/HCPCS: 36591; 71045; 74019; 74177; 77001; 80053; 83735; 84100; 84134; 84478; 85025; 86140; 96360; 96375; C1788; J0690; J1100; J1644; J2405; J2704; J7030; Q9967

== ENCOUNTER 2024-01-07 10:27 | Outpatient (CLI) | payer MEDICARE, OTHER, SELFPAY ==
[2024-01-07] MEDS: gadobenate dimeglumine 20 mL vial IV (10:59)
--- NOTE | 2024-01-07 11:00 | MR_ITS ---
WS: [id number] MRI BRAIN WITH AND WITHOUT CONTRAST HISTORY: Neroendocrine carcinoma COMPARISON: None available. TECHNIQUE: Multiplanar imaging performed through the brain with MultiHance 10 ml's IV. No acute infarcts are seen. Hartmann-white matter differentiation is well preserved. Moderate atrophy and mild small vessel ischemic type changes throughout the white matter. No susceptibility artifacts or prior lacunar infarcts. Ventricles and extra-axial spaces are normal. Clivus and pituitary gland are normal. Visualized posterior fossa and brainstem are also normal. Postcontrast images are negative for masses or vascular malformations. Dural venous sinuses are normal. Paranasal sinuses: Mild mucoperiosteal thickening LEFT sphenoid sinus. Mastoid air cells: Small amount of fluid LEFT mastoid air cells. Calvarium and scalp: Normal. MR/MR head wo/w con [id number] IMPRESSION: 1. No acute infarct. 2. No metastatic disease to the brain. 3. Moderate atrophy with mild small vessel ischemic changes.
== END 2024-01-07 10:28 | disposition home or self-care (01) ==
LOC: RAD 10:28
PROVIDERS: PCP Family Medicine; Visit Provider Internal Medicine
DX: C43.9 Malignant melanoma of skin, unspecified (principal); C7A.8 Other malignant neuroendocrine tumors; G31.9 Degenerative disease of nervous system, unspecified
CPT/HCPCS: 70553; A9577

== ENCOUNTER 2024-01-08 07:39 | Outpatient (CLI) | payer MEDICARE, OTHER, SELFPAY ==
--- NOTE | 2024-01-08 08:00 | PETR_ITS ---
PROCEDURE INFORMATION: Exam: PET/CT Whole Body Exam date and time: 01/08/2024 8:53 AM Age: 78 years old Clinical indication: Condition or disease; Condition/disease: Neuroendocrine tumores, melanoma; Additional info: Neuroendocrine tumor LABS AND CLINICAL REPORTS: Glucose: 92 mg/dl Treatment strategy for malignancy (PET staging): Initial Staging (PI) TECHNIQUE: Imaging protocol: Following at least four-hour fasting and following the injection of radiopharmaceutical, low dose CT images were obtained. Then, PET images were obtained. Attenuation corrected images were constructed using the CT scan. Fused images of PET and CT were reviewed. The standardized uptake values (SUV) reported below are maximum values within a region of interest, expressed in gm/ml. Exam includes the whole body. Radiopharmaceutical: 11.22 mCi F-18 FDG (Fluorodeoxyglucose), IV. Time of imaging post radiopharmaceutical administration: 1 hour Injection site: right AC COMPARISON: CT abdomen pelvis w con* [id number] 12/14/2023 9:43 AM FINDINGS: Tubes, catheters and devices: Some increased FDG uptake at the insertion site of the gastrostomy tube with SUV max 4.9 may be inflammatory. Left-sided Port-A-Cath terminates at the superior cavoatrial junction. Brain: Visualized brain has normal physiologic uptake. Dental: Periapical lucency involving the left maxillary lateral incisor with increased FDG uptake with SUV max 3.5 is likely inflammatory. Pharynx: No abnormal uptake. Larynx: No abnormal uptake. Lungs, pleura and trachea: Calcified granuloma in the left lower lobe. Heart: Normal physiologic uptake. Mediastinal space: No abnormal uptake. Liver: No abnormal uptake. Gallbladder and bile ducts: No abnormal uptake. Pancreas: No abnormal uptake. Spleen: Calcified splenic granulomas. Adrenal glands: No abnormal uptake. Kidneys and ureters: Normal physiologic uptake. Stomach and bowel: Focally increased FDG uptake at the ostomy site has SUV max 9.1. Interval resolution of the previously noted small bowel obstruction. Status post subtotal colectomy with right lower quadrant ileostomy. Intraperitoneal and retroperitoneal spaces: Mild mesenteric stranding is again seen. Vasculature: No abnormal uptake. Lymph nodes: No abnormal uptake. No lymphadenopathy in the head, neck, chest, abdomen, pelvis, and extremities. Bones/joints: No abnormal uptake in the visualized axial and appendicular skeleton. Soft tissues: There is some increased FDG uptake associated with nodular soft tissue in the small bowel wall in the left lower quadrant with SUV max 6.8. Trace left pleural effusion. Subcutaneous edema is seen within the lower legs and feet. PET/PET WB melanoma INITIAL [id number] IMPRESSION: 1. There is some increased FDG uptake associated with nodular soft tissue in the small bowel wall in the left lower quadrant concerning for metastatic disease. 2. Focally increased FDG uptake at the ostomy site of uncertain significance. This could be inflammatory, though a small metastatic soft tissue nodule in this region is also possibility. 3. Periapical lucency involving the left maxillary lateral incisor with increased FDG uptake with SUV max 3.5 is likely inflammatory. 4. Some increased FDG uptake at the insertion site of the gastrostomy tube with SUV max 4.9 may be inflammatory.
== END 2024-01-08 07:40 | disposition home or self-care (01) ==
LOC: RAD 07:40
PROVIDERS: PCP Family Medicine; Visit Provider Internal Medicine
DX: C7A.8 Other malignant neuroendocrine tumors (principal); D3A.8 Other benign neuroendocrine tumors; C43.9 Malignant melanoma of skin, unspecified
CPT/HCPCS: 78816; A9552

== ENCOUNTER 2024-02-05 10:00 | Oncology outpatient (recurring) (ONCR) | payer MEDICARE, OTHER, SELFPAY ==
[2024-01-14 09:44] VITALS: BP 117/58; PULSE 65; RESP 18; TEMP 36.4; O2SAT 98
[2024-01-14] MEDS: alteplase 1 mg/mL SDV 2 mL 2 MG INTRACATH (09:57)
[2024-01-14 11:10] LABS: Basophils % 0.5 %; Eosinophils # 0.1 10^3/uL (0.0-0.8); Eosinophils % 1.7 %; Hematocrit 27.7 % (36-47); Lymphocytes # 2.1 10^3/uL (0.8-4.8); Lymphocytes % 50.2 %; Mean Corpuscular HGB Conc 32.1 g/dL (30-55); Mean Corpuscular Hemoglobin 28.3 pg (27-33); Mean Corpuscular Volume 88.2 fl (85-98); Monocytes # 0.3 10^3/uL (0.2-0.9); Monocytes % 6.4 %; Neutrophils # 1.75 10^3/uL (1.8-7.7); Neutrophils % 41.2 %; Nucleated Red Blood Cells % 0 %; Platelet Count 177 10^3/cmm (157-399); Red Blood Count 3.14 10^6/uL (3.85-5.65); Red Cell Distribution Width 17.5 % (12.1-15.1); White Blood Count 4.24 10^3/uL (3.29-11.43)
[2024-01-14 11:26] LABS: Alanine Aminotransferase 27 U/L (0-33); Albumin Level 2.6 g/dL (3.5-5.2); Alkaline Phosphatase 75 U/L (35-105); Aspartate Amino Transferase 33 U/L (0-32); Blood Urea Nitrogen 45 mg/dL (8-23); C Reactive Protein 4.2 mg/L (0.0-4.9); Carbon Dioxide 30 mmol/L (22-29); Chloride 104 mmol/L (98-107); Creatinine Clr Calc Pharmacy 50.5188; Globulin 2.4 g/dL (1.3-4.6); Glucose 109 mg/dL (65-115); Magnesium 1.9 mg/dL (1.7-2.3); Osmolality Calculated 306 mOsm/kg (285-295); Phosphorus 3.8 mg/dL (2.5-4.5); Prealbumin 17.1 mg/dL (20-40); Sodium 142 mmol/L (136-145); Total Bilirubin 0.2 mg/dL (0.15-1.2); Triglycerides 105 mg/dL (0-150)
[2024-01-21 10:05] LABS: Eosinophils # 0.1 10^3/uL (0.0-0.8); Hematocrit 25.5 % (36-47); Lymphocytes # 1.7 10^3/uL (0.8-4.8); Lymphocytes % 41.1 %; Mean Corpuscular HGB Conc 32.5 g/dL (30-55); Mean Corpuscular Volume 89.2 fl (85-98); Mean Platelet Volume 10.2 fL (7.4-10.4); Monocytes # 0.3 10^3/uL (0.2-0.9); Monocytes % 7.9 %; Neutrophils # 1.93 10^3/uL (1.8-7.7); Neutrophils % 47.5 %; Nucleated Red Blood Cells % 0 %; Platelet Count 175 10^3/cmm (157-399); Red Blood Count 2.86 10^6/uL (3.85-5.65); White Blood Count 4.06 10^3/uL (3.29-11.43)
[2024-01-21 10:23] LABS: Alanine Aminotransferase 13 U/L (0-33); Albumin Level 2.6 g/dL (3.5-5.2); Alkaline Phosphatase 66 U/L (35-105); Anion Gap 10.9 (5-19); Aspartate Amino Transferase 18 U/L (0-32); Blood Urea Nitrogen 36 mg/dL (8-23); C Reactive Protein 22.2 mg/L (0.0-4.9); Calcium 8.4 mg/dL (8.5-10.5); Carbon Dioxide 27 mmol/L (22-29); Chloride 104 mmol/L (98-107); Creatinine Clr Calc Pharmacy 50.5188; Globulin 2.7 g/dL (1.3-4.6); Glucose 109 mg/dL (65-115); Magnesium 1.8 mg/dL (1.7-2.3); Osmolality Calculated 295 mOsm/kg (285-295); Phosphorus 3.6 mg/dL (2.5-4.5); Potassium 3.9 mmol/L (3.5-5.1); Sodium 138 mmol/L (136-145); Total Bilirubin 0.2 mg/dL (0.15-1.2); Total Protein 5.3 g/dL (6.6-8.7); Triglycerides 101 mg/dL (0-150)
[2024-01-21 10:41] LABS: Prealbumin 13.9 mg/dL (20-40)
[2024-01-28 09:44] LABS: Basophils % 0.8 %; Eosinophils # 0.1 10^3/uL (0.0-0.8); Eosinophils % 2.7 %; Lymphocytes # 1.4 10^3/uL (0.8-4.8); Lymphocytes % 37.2 %; Mean Corpuscular HGB Conc 32.6 g/dL (30-55); Mean Corpuscular Hemoglobin 29.5 pg (27-33); Mean Corpuscular Volume 90.6 fl (85-98); Mean Platelet Volume 9.1 fL (7.4-10.4); Monocytes # 0.4 10^3/uL (0.2-0.9); Monocytes % 10.9 %; Neutrophils # 1.77 10^3/uL (1.8-7.7); Neutrophils % 47.1 %; Nucleated Red Blood Cells % 0 %; Platelet Count 213 10^3/cmm (157-399); Red Blood Count 2.54 10^6/uL (3.85-5.65); White Blood Count 3.76 10^3/uL (3.29-11.43)
[2024-01-28 10:11] LABS: Alanine Aminotransferase 13 U/L (0-33); Albumin Level 2.5 g/dL (3.5-5.2); Alkaline Phosphatase 67 U/L (35-105); Anion Gap 13.1 (5-19); Aspartate Amino Transferase 23 U/L (0-32); Blood Urea Nitrogen 37 mg/dL (8-23); Calcium 8.1 mg/dL (8.5-10.5); Carbon Dioxide 24 mmol/L (22-29); Chloride 108 mmol/L (98-107); Creatinine Clr Calc Pharmacy 50.5188; Globulin 2.6 g/dL (1.3-4.6); Glucose 112 mg/dL (65-115); Magnesium 1.8 mg/dL (1.7-2.3); Osmolality Calculated 301 mOsm/kg (285-295); Potassium 4.1 mmol/L (3.5-5.1); Sodium 141 mmol/L (136-145); Total Bilirubin 0.2 mg/dL (0.15-1.2); Total Protein 5.1 g/dL (6.6-8.7); Triglycerides 100 mg/dL (0-150)
== END 2024-02-08 23:59 | disposition home or self-care (01) ==
PROVIDERS: Student in an Organized Health Care Education/Training Program; PCP Family Medicine; Visit Provider Internal Medicine
DX: Z45.2 Encounter for adjustment and management of vascular access device (principal); Z53.9 Procedure and treatment not carried out, unspecified reason
CPT/HCPCS: 36591; 36593; 80053; 83735; 84100; 84134; 84478; 85025; 86140; 96374; 99214; J2997

== ENCOUNTER → 2024-04-01 10:03 | Outpatient (BNVA) | payer MEDICARE, OTHER, SELFPAY | PROVIDERS: PCP Family Medicine; Visit Provider Nurse Practitioner Family | DX: I96 Gangrene, not elsewhere classified (principal); I87.2 Venous insufficiency (chronic) (peripheral); L97.821 Non-pressure chronic ulcer of other part of left lower leg limited to breakdown of skin; L97.811 Non-pressure chronic ulcer of other part of right lower leg limited to breakdown of skin | CPT/HCPCS: 97597 ==

== ENCOUNTER → 2024-04-08 09:04 | Outpatient (BNVA) | payer MEDICARE, OTHER, SELFPAY | PROVIDERS: PCP Family Medicine; Visit Provider Thoracic Surgery (Cardiothoracic Vascular Surgery) | DX: I87.2 Venous insufficiency (chronic) (peripheral) (principal); L97.811 Non-pressure chronic ulcer of other part of right lower leg limited to breakdown of skin; L97.821 Non-pressure chronic ulcer of other part of left lower leg limited to breakdown of skin | CPT/HCPCS: 97597; A6251 ==

== ENCOUNTER → 2024-04-15 08:33 | Outpatient (BNVA) | payer MEDICARE, OTHER, SELFPAY | PROVIDERS: PCP Family Medicine; Visit Provider Thoracic Surgery (Cardiothoracic Vascular Surgery) | DX: I96 Gangrene, not elsewhere classified (principal); I87.2 Venous insufficiency (chronic) (peripheral); L97.821 Non-pressure chronic ulcer of other part of left lower leg limited to breakdown of skin; L97.811 Non-pressure chronic ulcer of other part of right lower leg limited to breakdown of skin | CPT/HCPCS: 97597 ==

== ENCOUNTER → 2024-04-22 08:28 | Outpatient (BNVA) | payer MEDICARE, OTHER, SELFPAY | PROVIDERS: PCP Family Medicine; Visit Provider Thoracic Surgery (Cardiothoracic Vascular Surgery) | DX: I96 Gangrene, not elsewhere classified (principal); I87.2 Venous insufficiency (chronic) (peripheral); L97.821 Non-pressure chronic ulcer of other part of left lower leg limited to breakdown of skin; Z09 Encounter for follow-up examination after completed treatment for conditions other than malignant neoplasm | CPT/HCPCS: 97597; A6021 ==

== ENCOUNTER → 2024-04-29 09:06 | Outpatient (BNVA) | payer MEDICARE, OTHER, SELFPAY | PROVIDERS: PCP Family Medicine; Visit Provider Thoracic Surgery (Cardiothoracic Vascular Surgery) | DX: I96 Gangrene, not elsewhere classified (principal); I87.2 Venous insufficiency (chronic) (peripheral); L97.821 Non-pressure chronic ulcer of other part of left lower leg limited to breakdown of skin | CPT/HCPCS: 97597; A6021 ==

== ENCOUNTER → 2024-05-06 08:55 | Outpatient (BNVA) | payer MEDICARE, OTHER, SELFPAY | PROVIDERS: PCP Family Medicine; Visit Provider Thoracic Surgery (Cardiothoracic Vascular Surgery) | DX: I96 Gangrene, not elsewhere classified (principal); I87.2 Venous insufficiency (chronic) (peripheral); L97.821 Non-pressure chronic ulcer of other part of left lower leg limited to breakdown of skin | CPT/HCPCS: 97597; A6021; A6248 ==

== ENCOUNTER → 2024-05-13 09:05 | Outpatient (BNVA) | payer MEDICARE, OTHER, SELFPAY | PROVIDERS: PCP Family Medicine; Visit Provider Thoracic Surgery (Cardiothoracic Vascular Surgery) | DX: Z09 Encounter for follow-up examination after completed treatment for conditions other than malignant neoplasm (principal); Z87.2 Personal history of diseases of the skin and subcutaneous tissue | CPT/HCPCS: 99212 ==

== ENCOUNTER 2025-03-31 10:25 | Oncology outpatient (recurring) (ONCR) | payer MEDICARE, OTHER, SELFPAY | END 2025-04-09 23:59 | disposition home or self-care (01) | PROVIDERS: PCP Family Medicine; Visit Provider Internal Medicine Hematology & Oncology | DX: Z45.2 Encounter for adjustment and management of vascular access device (principal); Z95.828 Presence of other vascular implants and grafts | CPT/HCPCS: 96523 ==

== ENCOUNTER 2025-07-30 10:30 | Oncology outpatient (recurring) (ONCR) | payer MEDICARE, OTHER, SELFPAY | END 2025-08-09 23:59 | disposition home or self-care (01) | PROVIDERS: PCP Family Medicine; Visit Provider Internal Medicine Hematology & Oncology | DX: Z53.9 Procedure and treatment not carried out, unspecified reason (principal); Z45.2 Encounter for adjustment and management of vascular access device; Z95.828 Presence of other vascular implants and grafts | CPT/HCPCS: 96523 ==